=== PATIENT | female | born 1935 | race Caucasian/White ===

== ENCOUNTER 2018-08-03 15:00 | Inpatient (IN) ==
[2018-08-03] MEDS ORDERED: Naloxone 0.4 MG/ML INJ IVP PRN (18:55)
--- NOTE | 2018-08-03 19:22 | Internal Med History&Physical ---
Date of Encounter: 08/03/18 Time of Encounter: 19:00 Internal Medicine - H&P: HPI Chief complaint: s/p fall today with left hip fracture History of present illness: Ms. Crane is a 83 year old female with pmh of hypertension, hypothyroidsim, osteopenia presenting today with complaints of fall today. Patient went to retrieve her mail and fell in the snow. she tried to get up and fell a second time. She complains of left sided hip pain. Denies any other acute complaints. Patient has outward rotation of left leg on arrival. xray confirmed left femoral neck fracture. She was transferred from [place] to [place] and orthopedic surgery has been consulted Past Med Surg Social Fam HX - Past Medical History Medical history: diabetes, hypertension Psychiatric history: no psych history - Past Surgical History Surgical History: other - Social History Smoking Status: Never smoker Smokeless Tobacco Status: No Alcohol use: none Drug use: none Internal Medicine - H&P: Meds Lisinopril/Hydrochlorothiazide [Zestoretic 20-25 mg Tablet] 1 each PO DAILY 06/26/15 [History] metFORMIN [Glucophage] 500 mg PO BID 06/26/15 [History] Aspirin [Lo-Dose Aspirin EC] 81 mg PO DAILY 02/05/17 [History] Alendronate Sodium [Fosamax] 35 mg PO QWEEK 09/17/17 [History] Calcium Carbonate/Vitamin D3 [Oyster Shell Calcium-Vit D Tab] 1 each PO DAILY 09/17/17 [History] Ferrous Sulfate [Iron] 325 mg PO DAILY 09/17/17 [History] Levothyroxine Sodium [Levoxyl] 100 mcg PO DAILY 09/17/17 [History] Simvastatin [Zocor] 20 mg PO HS 09/17/17 [History] Zolpidem [Ambien] 10 mg PO HS 09/17/17 [History] Allergy/AdvReac Type Severity Reaction Status Date / Time diltiazem [From Cardizem] Allergy Rash Verified 09/17/17 10:13 All Systems PM: A 10-system review of systems was performed and is negative for pertinent findings except as documented above in the HPI. - Constitutional Constitutional: no chills, no fever(s), no night sweats - EENT Eyes: no change in vision, no discharge, no pain, no photophobia Ears: no ear discharge, no ear pain, no tinnitus Nose, mouth and throat: no dysphagia, no nasal discharge, no neck pain, no sore throat - Cardiovascular Cardiovascular ROS IM: no chest pain, no diaphoresis, no dyspnea, no lightheadedness, no palpitations, no syncope - Respiratory Respiratory: no cough, no dyspnea, no wheezing, no excessive phlegm production - Gastrointestinal Gastrointestinal: no abdominal pain, no diarrhea, no hematemesis, no hematochezia, no melena, no nausea, no vomiting - Genitourinary Genitourinary: no change in urinary stream, no dysuria, no flank pain, no hematuria - Musculoskeletal Musculoskeletal ROS IM: limited range of motion, no numbness, no tingling - Integumentary Integumentary IM: no rash, no unusual bruising - Neurological Neurological ROS: no confusion, no convulsions, no focal weakness, no numbness, no tingling, no tremor(s) - Hematologic/Lymphatic Hematologic/Lymphatic: no easy bruising - Constitutional Vitals: Temp Pulse Resp BP Pulse Ox 97.9 F 67 16 121/64 98 08/03/18 18:58 08/03/18 18:58 08/03/18 18:58 08/03/18 18:58 08/03/18 18:58 Exam: NAD - Head Head exam: Present: atraumatic, normocephalic - Eye Eye exam: Present: PERRL, conjuntiva pink, sclera anicteric Pupils: Present: PERRL - Neck Neck exam general surgery: Present: supple, trachea midline. Absent: lymphadenopathy - Respiratory Respiratory exam: Present: CTAB. Absent: accessory muscle use, rales, rhonchi, wheezes - Cardiovascular Cardiovascular exam: Present: RRR, +S1, +S2. Absent: diastolic murmur, gallop, rubs, systolic murmur - GI/Abdominal GI/Abdominal exam: Present: normal bowel sounds, soft, no peritoneal signs. Absent: distended, tenderness - Extremities Exam Extremities exam: Present: tenderness, warm, radial pulses palpable and symmetrical. Absent: calf tenderness, cyanotic, pedal edema Additional comments: External rotation of left leg - Neurological Exam Neurological exam: Present: CN II-XII intact, oriented X3, no focal deficits. Absent: pronater drift, facial droop, speech deficit - Skin Skin exam: Present: dry, intact - Assessment and plan (1) Hip fracture due to osteoporosis Current Visit: Yes Status: Acute Assessment and plan: Pt has osteopenia and is s/p fall today iwht left femoral neck fracture Pain control. Orthopedic surgery consulted and plan for surgery in am Qualifiers: Qualified Code(s): M80.059A - Age-related osteoporosis with current pathological fracture, unspecified femur, initial encounter for fracture (2) Hypothyroidism Current Visit: Yes Status: Acute Assessment and plan: Resume levothyroxine Qualifiers: Qualified Code(s): E03.9 - Hypothyroidism, unspecified (3) Hypertension Current Visit: Yes Status: Acute Assessment and plan: Continue home meds. Monitor BP Qualifiers: Qualified Code(s): I10 - Essential (primary) hypertension (4) Diabetes Current Visit: Yes Status: Acute Assessment and plan: Sliding scale insulin Qualifiers: Diabetes mellitus type: type 2 Qualified Code(s): E11.9 - Type 2 diabetes mellitus without complications (5) Leukocytosis Current Visit: Yes Status: Acute Assessment and plan: WBC from [place] was 16. CXR negative. Possibly hemoconcentration. Hydrate and repeat BMP Qualifiers: Qualified Code(s): D72.829 - Elevated white blood cell count, unspecified (6) CKD (chronic kidney disease) stage 2, GFR 60-89 ml/min Current Visit: Yes Status: Acute Assessment and plan: Stefan vs stefan on ckd stage 2. creatinie was 1.7 from [place]. Hydrate (7) DVT prophylaxis Current Visit: Yes Status: Acute Assessment and plan: scds - Time Spent With Patient Total time spent is greater than 50% in coordination of care (as documented) at patient's floor/unit and/or counseling patient:
[2018-08-03] MEDS ORDERED: Dextrose Gel 15 GM/37.5 ML TUBE PO PRN ×2 (19:27)
[2018-08-03] MEDS ORDERED: *HR* Dextrose 50 % in Water (Syg) 50 ML SYRINGE IVP PRN (19:27)
[2018-08-03] MEDS ORDERED: D5% in Water 1,000 ML IVC PRN (19:27)
[2018-08-03 19:55] LABS: Basophils % 0.2 %; Hemoglobin 11.5 g/dL (11.5-15.4); Immature Granulocytes % 0.4 % (0-4); Lymphocytes # 0.5 K/mcL (0.6-4.6); Lymphocytes % 4.2 %; Mean Corpuscular HGB Conc 31.1 g/dL (31.6-35.5); Mean Corpuscular Hemoglobin 28.8 pg (28.0-33.3); Mean Corpuscular Volume 92.5 fL (83.0-100.0); Monocytes # 0.5 K/mcL (0.0-1.3); Monocytes % 4.4 %; Neutrophils # 10.2 K/mcL (1.6-8.9); Platelet Count 323 K/mcL (140-400); Segmented Neutrophils % 90.8 %
[2018-08-03 20:06] LABS: Calcium 8.9 mg/dL (8.6-10.3); Potassium 4.7 mEq/L (3.5-5.1)
[2018-08-03] MEDS: 0.9 % Sodium Chloride 1,000 ML IVC SCH (20:20)
[2018-08-03 20:38] LABS: Estimated Average Glucose 146 mg/dl; Hemoglobin A1C 6.7 %
[2018-08-03] MEDS: *HR* OxyCODONE/APAP 5/325 TABLET PO PRN (22:29)
[2018-08-03] MEDS ORDERED: Melatonin 3 MG TABLET PO PRN (23:37)
[2018-08-04 04:03] LABS: Basophils % 0.2 %; Eosinophils % 0.2 %; Hematocrit 34.7 % (35.3-44.9); Immature Granulocytes % 0.4 % (0-4); Lymphocytes # 1.1 K/mcL (0.6-4.6); Lymphocytes % 13.5 %; Mean Corpuscular HGB Conc 31.7 g/dL (31.6-35.5); Mean Corpuscular Hemoglobin 29.5 pg (28.0-33.3); Mean Platelet Volume 10.1 fL (9.4-12.4); Monocytes # 0.6 K/mcL (0.0-1.3); Monocytes % 7.7 %; Neutrophils # 6.4 K/mcL (1.6-8.9); Platelet Count 314 K/mcL (140-400); Red Blood Count 3.73 M/mcL (3.82-4.97)
[2018-08-04 04:16] LABS: Calcium 8.7 mg/dL (8.6-10.3); Magnesium 2.1 mg/dL (1.6-2.6); Phosphorous 3.3 mg/dL (2.7-4.5); Potassium 4.8 mEq/L (3.5-5.1)
[2018-08-04] MEDS: Insulin LISPRO 300 UNITS/3 ML VIAL SQ SCH ×3 (07:57→16:57)
--- NOTE | 2018-08-04 08:12 | Orthopedics Progress Note ---
Date of Encounter: 08/04/18 Time of Encounter: 08:11 Subjective Interval history: Patient seen this morning awake and alert but not fully oriented. Patient status post fall diagnosed with hip fracture left Patient with decreased motion secondary to pain shortened external rotated left lower extremity neurovascularly intact X-rays show displaced left femoral neck fracture recommendation left hip hemiarthroplasty will discuss with patient's family. Objective Vital signs: Vital Signs Temp Pulse Resp BP Pulse Ox 08/04/18 06:53 98.5 F 73 16 126/67 96 08/04/18 04:51 98.3 F 70 16 118/70 95 08/03/18 23:08 98.2 F 73 15 116/63 94 08/03/18 18:58 97.9 F 67 16 121/64 98 08/03/18 18:45 97.7 F 73 20 137/69 98 Intake and Output 08/03/18 08/04/18 08/04/18 23:59 07:59 15:59 Output Total 50 / 50 200 / 200 Balance -50 / -50 -200 / -200 Output: Urine 50 / 50 200 / 200 Other: Weight 51.5 kg Blood Glucose* 152 123 - Labs CBC & BMP: 08/04/18 03:05 08/04/18 03:05 Labs: Abnormal lab results RBC 3.73 M/mcL (3.82-4.97) L 08/04/18 03:05 Hgb 11.0 g/dL (11.5-15.4) L 08/04/18 03:05 Hct 34.7 % (35.3-44.9) L 08/04/18 03:05 Chloride 111 mEq/L (98-107) H 08/04/18 03:05 Carbon Dioxide 19 mEq/L (23-29) L 08/04/18 03:05 BUN 44 mg/dL (8-23) H 08/04/18 03:05 Creatinine 1.52 mg/dL (0.60-1.20) H 08/04/18 03:05 Est GFR ( Amer) 40 (> 60) L 08/04/18 03:05 Est GFR (Non-Af Amer) 33 (> 60) L 08/04/18 03:05 BUN/Creatinine Ratio 29 (6-26) H 08/04/18 03:05 Glucose 143 mg/dL (70-105) H 08/04/18 03:05 Hemoglobin A1c 6.7 % (-5.6) H 08/03/18 19:24 Consult Discharge Plan - Plan Referrals: NONE,PCP [Primary Care Provider] -
[2018-08-04] MEDS: *HR* OxyCODONE/APAP 5/325 TABLET PO PRN (08:32)
[2018-08-04] MEDS ORDERED: Cholecalciferol (D-3) 1,000 UNIT TABLET PO SCH (09:00)
[2018-08-04] MEDS: 0.9 % Sodium Chloride 1,000 ML IVC SCH (10:04)
--- NOTE | 2018-08-04 12:43 | Anesthesia Evaluation PreOp ---
Date of Encounter: 08/04/18 Time of Encounter: 12:41 - Past History Planned Operation: Left Demetrius Hip Cardiac History: Denies any Significant Hx ( Planned Operation: T9 Kyphoplasy Cardiac History: HTN, Hyperlipidemia Pulmonary History: Snore JOB PRINTER History: Denies Any Significant HX Other Medical History: Diabetes Type II, Thyroid Anesthesia History: No Prior Anesthetic Complications, Past Anesthesia Alcohol Use: none Drug use: none), HTN, Hyperlipidemia Pulmonary History: Snore JOB [employer]INTER History: Denies Any Significant HX Other Medical History: Diabetes Type II, Thyroid (Hypo) Anesthesia History: No Prior Anesthetic Complications, Past Anesthesia (Kyphoplasty) : No Alcohol Use: none Drug use: none Medications and Allergies metFORMIN [Glucophage] 500 mg PO DAILY 06/26/15 [History] Aspirin [Lo-Dose Aspirin EC] 81 mg PO DAILY 02/05/17 [History] Alendronate Sodium [Fosamax] 35 mg PO QWEEK 09/17/17 [History] Calcium Carbonate/Vitamin D3 [Oyster Shell Calcium-Vit D Tab] 1 each PO DAILY 09/17/17 [History] Ferrous Sulfate [Iron] 325 mg PO DAILY 09/17/17 [History] Levothyroxine Sodium [Levoxyl] 100 mcg PO DAILY 09/17/17 [History] Simvastatin [Zocor] 20 mg PO HS 09/17/17 [History] Lisinopril 20 mg PO BID 08/03/18 [History] Allergy/AdvReac Type Severity Reaction Status Date / Time diltiazem [From Cardizem] Allergy Rash Verified 09/17/17 10:13 - Meds/Allergy Pre-op Review Medications Reviewed: Yes Allergies Reviewed: Yes Beta Blockers on Current Med List: No Anesthesia Results - Labs 08/04/18 03:05 08/04/18 03:05 - Imaging EKG: report reviewed (SINUS RHYTHM Ischemic changes in Ant-Septal area) Additional studies: Echocardiogram Name: Christine Crane Date of Study: 04/28/2016 Impressions: LVEF 60%. Normal left ventricular size and systolic function. Mild increased LV wall thickness with moderate basal septal hypertrophy. Mildly dilated RV with normal function. Mild to moderate tricuspid regurgitation. Mild pulmonic regurgitation. Estimated RVSP was 48 mmHg. Mild pulmonary hypertension. 11/22/2013 Stress Perfusion imaging was negative for ischemia or infarct. There is a small size, mild intensity, fixed perfusion defect in the distal anteroseptum c/w artifact. Exercise ECG is negative for ischemia. No arrhythmias were noted during stress. No chest pain or arrhythmias during stress. Patient had no chest pain during stress. The exercise capacity was poor (2:33/4.6 METs). Normal hemodynamic responses to exercise. The left ventricle does not appear dilated. No evidence of transient ischemic dilatation. Anesthesia Exam Vital Signs/O2 Sat, Most Current Temp Pulse Resp BP Pulse Ox 99.3 F 78 16 103/56 96 08/04/18 10:55 08/04/18 10:55 08/04/18 10:55 08/04/18 10:55 08/04/18 10:55 NPO (# of Hours): > 8 hrs Pain Scale: 0 Pain Scale Used: Numeric (1 - 10) - HEENT Pupil (Motor): Pupils equal, EOMI Mallampati: II Teeth: Missing Denture Type: Upper: Complete Oral Opening: Greater than 3 - JOB PRINTER LOC: Oriented JOB PRINTER Motor: Normal RUE, Normal LUE, Normal RLE, Normal LLE, Normal Face JOB PRINTER Sensory: Normal: RUE, LUE, RLE, LLE, Face - Cardiac Rhythm: Regular Murmur: None JVD: No Carotid Bruit: No - Pulmonary Breath Sounds: bilateral Clear Respiratory Effort: Symmetrical Anesthesia Assess/Plan ASA Score: 3 Level of consciousness: Cooperative Anesthetic Plan: General Autologous Blood: Yes Monitoring Plan: Standard Monitors Recovery Plan: PACU
[2018-08-04] MEDS ORDERED: Lidocaine -MPF 1% 5 ML AMPUL ONE (13:15)
[2018-08-04] MEDS ORDERED: *HR* FentaNYL (PF) 100 MCG/2 ML VIAL ONE (13:17)
--- NOTE | 2018-08-04 13:36 | Anesthesia Procedures ---
Date of Encounter: 08/04/18 Time of Encounter: 13:22 Procedures: Anesthesia - Epidural/Spinal Patient ID/Chart reviewed: Yes Patient examined: Yes Consent Obtained: Yes Supplemental Oxygen: Nasal Cannula Sedation: Fentanyl (mcg): 50 Site Prep: Aseptic Technique, Sterile prep and drape, 0.5% Chlorhexidine/Alcohol Patient position: right lateral decubitus Local Anesthetic: Lidocaine 1% Amount of Local Anesthetic used: 2 Blood: No CSF: Yes Paresthesia: No Spinal Dose: 2ml 0.5% bup plain, positive swirl 24g pencan Procedure: pencan passage x3 to clear CSF aseptic tech though out, gage well.
[2018-08-04] MEDS ORDERED: *HR* Propofol 200 MG/20 ML VIAL IVP ONE (13:37)
[2018-08-04] MEDS ORDERED: *HR* PHENYLEPHRINE 1,000 MCG/10 ML SYRINGE IVP ONE ×2 (13:48→14:02)
--- NOTE | 2018-08-04 13:50 | Internal Med Progress Note ---
Hospitalist Progress Note - Encounter Date of Encounter: 08/04/18 Time of Encounter: 10:00 - Subjective Interval History: Patient is laying on bed comfortably. Complain of left hip pain but can be controlled by pain medications. Vitals are stable. - Exam Vitals: Temp Pulse Resp BP Pulse Ox 99.3 F 71 16 82/47 97 08/04/18 10:55 08/04/18 13:45 08/04/18 13:45 08/04/18 13:45 08/04/18 13:45 Exam: Pt is AAO x 3, in NAD HEENT: NC/AT, PERRL Neck: Supple, no JVD, no LAD Lungs: CTA b/l Heart: S1S2, RRR Abd: Soft, nontender, BS present Ext: ROM wnl, no pedal edema. Left hip pain on palpation. Neuro: No focal deficit - Assessment and Plan (1) Hip fracture due to osteoporosis Current Visit: Yes Status: Acute Assessment and Plan: Pt has osteopenia and is s/p fall today wiht left femoral neck fracture. - Pain control. DVT prophylaxis. - Orthopedic surgery consulted and plan for surgery (2) Hypothyroidism Current Visit: Yes Status: Acute Assessment and Plan: Resume home dose levothyroxine (3) Hypertension Current Visit: Yes Status: Acute Assessment and Plan: Continue home meds. Monitor BP (4) Diabetes Current Visit: Yes Status: Acute Assessment and Plan: Sliding scale insulin (5) DVT prophylaxis Current Visit: Yes Status: Acute Assessment and Plan: scds at this point. Resume anticoagulation after surgery (6) Leukocytosis Current Visit: Yes Status: Acute Assessment and Plan: Improved. Possibly reactive. (7) CKD (chronic kidney disease) stage 2, GFR 60-89 ml/min Current Visit: Yes Status: Acute Assessment and Plan: Creatinine level is at around baseline. Closely monitor renal function. Avoid nephrotoxic medications - Time Spent with Patient Total time spent is greater than 50% in coordination of care (as documented) at patient's floor/unit and/or counseling patient: 30 min 25 - 35 minutes Plan of Care Discussed with: patient Internal Medicine: Result - Labs CBC & Chem 7: 08/04/18 03:05 08/04/18 03:05 Labs: Short CBC 08/03/18 08/04/18 Range/Units 19:24 03:05 WBC 11.2 H 8.2 (4.3-11.1) K/mcL Hgb 11.5 11.0 L (11.5-15.4) g/dL Hct 37.0 34.7 L (35.3-44.9) % Plt Count 323 314 (140-400) K/mcL Neutrophils # 10.2 H 6.4 (1.6-8.9) K/mcL BMP 08/03/18 08/04/18 19:24 03:05 Sodium 138 138 Potassium 4.7 4.8 Chloride 111 H 111 H Carbon Dioxide 21 L 19 L BUN 50 H 44 H Creatinine 1.56 H 1.52 H Glucose 174 H 143 H Calcium 8.9 8.7 Consult Discharge Plan - Plan Referrals: NONE,PCP [Primary Care Provider] - (1) Hip fracture due to osteoporosis Qualifiers: Qualified Code(s): M80.059A - Age-related osteoporosis with current pathological fracture, unspecified femur, initial encounter for fracture (2) Hypothyroidism Qualifiers: Qualified Code(s): E03.9 - Hypothyroidism, unspecified (3) Hypertension Qualifiers: Qualified Code(s): I10 - Essential (primary) hypertension (4) Diabetes Qualifiers: Diabetes mellitus type: type 2 Qualified Code(s): E11.9 - Type 2 diabetes mellitus without complications (6) Leukocytosis Qualifiers: Qualified Code(s): D72.829 - Elevated white blood cell count, unspecified
[2018-08-04] MEDS ORDERED: Ethanol\\Acetic Acid\\Na Ace\\Ben 1,000 ML IRRIG.SOLN IR ONE (14:02)
[2018-08-04] MEDS ORDERED: Propofol 500 MG/50 ML INFUS..BTL ONE (14:21)
[2018-08-04] MEDS ORDERED: Ondansetron 4 MG/2 ML VIAL ONE (14:43)
[2018-08-04] MEDS ORDERED: Lidocaine -MPF 2% 2 ML VIAL ONE (14:43)
--- NOTE | 2018-08-04 15:03 | Orthopedic Operative Note ---
Date of procedure: 08/04/18 Pre-op diagnosis: Displaced left femoral neck fracture Post-op diagnosis: same Procedure: Procedure: Left hip hemiarthroplasty Estimated blood loss: 100 cc Hardware: Metal replacement Ksenia bipolar 45 Ileana +8 femoral head, 7 femoral stem Procedural Notes: Displaced left femoral neck fracture Operative procedure: The patient was brought to the operating room and placed on the operating room table. After general anesthesia was administered the patient was placed in the lateral decubitus position with the operative leg up. All pressure points were padded appropriately and the head was stabilized in the neutral position. The operative extremity was prepped and draped in the sterile surgical fashion patient received IV antibiotic prior to skin incision. A standard posterior approach is made to the operative hip, the incision was made through the skin and subcutaneous tissue hemostasis was obtained with Bovie cautery. Using careful sharp dissection the fascia was identified and incised exposing the external rotators. The external rotators were released off the greater trochanter and tagged with #2 FiberWire suture. The capsule was T'd open the femoral head was removed. The femoral neck cut was made at the appropriate level. The hip was brought into internal rotation and prepared with the box sorter followed by the canal finder followed by broaching process in 20 degrees anteversion. It was broached up to the appropriate size 7 The femoral implant was impacted in place in 20 degrees of anteversion. Trial reduction found the hip to be stable with the appropriate sizes 45 bipolar Ileana +8 head. The trials were removed and the real implants were impacted in place. The hip was reduced, the hip had full extension and full flexion of the knee was in full extension.the patient had apparent equal leg length. The hip had excellent stability with forward flexion to 90 degrees adduction of 30 degrees and internal rotation of 60 degrees. The hip had no shuck. The hip was irrigated out with 2 L of pulse irrigation. The PA close the hip. Fascia was closed with #2 PDS suture. The deep tissue was irrigated and closed deep with #1 PDS suture superficially with 0 PDS suture and skin was closed with skin rojelio The patient was placed in a sterile dressing and abduction pillow. The patient was extubated and transferred to the recovery room in stable condition. Anesthesia: GETA Surgeon: Constantino Stephenson Was there an land surveyor assistant present: No Estimated blood loss (cc): 100 Condition: stable Disposition: PACU
--- NOTE | 2018-08-04 15:51 | Anesthesia Evaluation Post Op ---
Date of Encounter: 08/04/18 Time of Encounter: 15:50 - Vital Signs Vital Signs: Vital Signs/O2 Sat, Most Current Temp Pulse Resp BP Pulse Ox 99.5 F 95 16 116/65 99 08/04/18 15:37 08/04/18 15:37 08/04/18 15:37 08/04/18 15:37 08/04/18 15:37 - Lungs Lungs: Clear Ascult./Percussion - Airway Airway: Non-obstructed - Cardiovascular Regular Rate - Mental Status Mental Status: Alert & Oriented, Answers Appropriately - Pain Pain Scale: 0 Pain Scale used: Numeric (1 - 10) - Nausea Vomiting Nausea Vomiting: Not Present - Hydration Hydration: Tolerates oral liquids, Has not voided - Discharge PostOp Status: Transfer Patient to floor
[2018-08-04 15:54] LABS: Hematocrit 30.8 % (35.3-44.9); Hemoglobin 9.6 g/dL (11.5-15.4)
[2018-08-04] MEDS ORDERED: *HR* OxyCODONE/APAP 5/325 TABLET PO PRN (16:08)
[2018-08-04] MEDS ORDERED: 0.9 % Sodium Chloride 1,000 ML IVC SCH (16:08)
[2018-08-04] MEDS ORDERED: Naloxone 0.4 MG/ML INJ IVP PRN ×2 (16:08)
[2018-08-04] MEDS ORDERED: Sennosides 8.6 MG TABLET PO PRN (16:08)
[2018-08-04] MEDS ORDERED: *HR* Promethazine 25 MG/ML VIAL IVP PRN (16:08)
[2018-08-04] MEDS ORDERED: Temazepam 15 MG CAPSULE PO PRN (16:08)
[2018-08-04] MEDS ORDERED: MOM Conc 10 ML UD.LIQ PO PRN (16:08)
[2018-08-04] MEDS ORDERED: Ondansetron 4 MG/2 ML VIAL IVP PRN (16:08)
[2018-08-04] MEDS ORDERED: Dextrose Gel 15 GM/37.5 ML TUBE PO PRN ×2 (16:08)
[2018-08-04] MEDS ORDERED: *HR* Dextrose 50 % in Water (Syg) 50 ML SYRINGE IVP PRN (16:08)
[2018-08-04] MEDS ORDERED: D5% in Water 1,000 ML IVC PRN (16:08)
[2018-08-04] MEDS: Ascorbic Acid 500 MG TABLET PO SCH (17:19)
[2018-08-04] MEDS ORDERED: *HR* LORazepam 2 MG/ML VIAL IVP PRN (18:22)
[2018-08-04] MEDS ORDERED: Lisinopril 20 MG TABLET PO SCH (21:00)
[2018-08-04] MEDS: Ringers Solution, Lactated 1,000 ML IVC SCH (21:31)
[2018-08-04] MEDS: Melatonin 3 MG TABLET PO PRN (22:42)
[2018-08-05 06:35] LABS: Hematocrit 26.5 % (35.3-44.9); Hemoglobin 8.6 g/dL (11.5-15.4)
[2018-08-05] MEDS: Ringers Solution, Lactated 1,000 ML IVC SCH (06:58)
[2018-08-05 06:59] LABS: Calcium 8.5 mg/dL (8.6-10.3); Potassium 4.7 mEq/L (3.5-5.1)
[2018-08-05] MEDS: Insulin LISPRO 300 UNITS/3 ML VIAL SQ SCH ×3 (07:40→17:50)
[2018-08-05] MEDS ORDERED: Lisinopril 20 MG TABLET PO SCH (09:00)
[2018-08-05] MEDS: Multivit/Ca/Min/Fe/FA 1 TAB TABLET PO SCH (09:09)
[2018-08-05] MEDS: Ascorbic Acid 500 MG TABLET PO SCH ×2 (09:09→17:49)
[2018-08-05] MEDS: Cholecalciferol (D-3) 1,000 UNIT TABLET PO SCH (09:09)
--- NOTE | 2018-08-05 09:30 | Orthopedics Progress Note ---
Date of Encounter: 08/05/18 Time of Encounter: 09:29 - Assessment and Plan (1) Acute blood loss anemia Current Visit: Yes Status: Acute Subjective Interval history: Patient was seen this morning doing well without complaints. Afebrile vital signs stable. Operative extremity: Neurovascularly intact Dressing clean dry and intact Calves nontender Assessment and plan: Continue with postoperative care Hematocrit 26 stable for discharge Objective Vital signs: Vital Signs Temp Pulse Resp BP Pulse Ox 08/05/18 07:14 98.1 F 87 15 131/61 96 08/05/18 05:08 147/76 08/04/18 23:26 97.8 F 89 16 106/61 95 08/04/18 20:59 95 08/04/18 20:54 98.1 F 90 18 114/67 95 08/04/18 19:45 98.2 F 86 16 102/63 98 08/04/18 18:41 97.9 F 91 20 96/59 97 08/04/18 16:51 97.9 F 93 103/52 100 08/04/18 16:10 97.4 F L 103 107/66 95 08/04/18 15:47 92 16 117/68 96 08/04/18 15:37 99.5 F 95 16 116/65 99 08/04/18 15:27 92 18 117/61 98 08/04/18 15:17 88 18 115/60 98 08/04/18 15:07 99.3 F 88 18 101/58 100 08/04/18 14:10 69 15 96/52 99 08/04/18 14:03 61 15 110/64 99 08/04/18 14:00 71 15 84/47 97 08/04/18 13:58 74 15 93/50 98 08/04/18 13:55 70 16 93/48 98 08/04/18 13:50 69 15 105/59 98 08/04/18 13:45 71 16 82/47 97 08/04/18 13:41 70 15 100/55 97 08/04/18 13:36 69 15 106/56 97 08/04/18 13:30 70 15 136/77 97 08/04/18 10:55 99.3 F 78 16 103/56 96 Intake and Output 08/04/18 08/05/18 08/05/18 23:59 07:59 15:59 Intake Total 400 / 400 Output Total 300 / 300 Balance 100 / 100 Intake: IV Fluids 100 / 100 Ancef 2,000 MG In 0.9 % Sodium 100 / 100 Chloride 100 ML @ 200 mls/hr IVPB Q8H [facility] Rx#:[id number] Oral 300 / 300 Output: Urine 300 / 300 Other: # Voids 1 Weight 52 kg Blood Glucose* 208 137 Patient Weight 08/05/18 23:59 Weight 52 kg - Labs CBC & BMP: 08/05/18 05:45 08/05/18 05:45 Labs: Abnormal lab results RBC 3.73 M/mcL (3.82-4.97) L 08/04/18 03:05 Hgb 8.6 g/dL (11.5-15.4) L 08/05/18 05:45 Hct 26.5 % (35.3-44.9) L 08/05/18 05:45 Chloride 109 mEq/L (98-107) H 08/05/18 05:45 Carbon Dioxide 19 mEq/L (23-29) L 08/05/18 05:45 BUN 37 mg/dL (8-23) H 08/05/18 05:45 Creatinine 1.54 mg/dL (0.60-1.20) H 08/05/18 05:45 Est GFR ( Amer) 39 (> 60) L 08/05/18 05:45 Est GFR (Non-Af Amer) 32 (> 60) L 08/05/18 05:45 Glucose 162 mg/dL (70-105) H 08/05/18 05:45 POC Glucose 107 mg/dL (70-99) H 08/04/18 16:19 Hemoglobin A1c 6.7 % (-5.6) H 08/03/18 19:24 Calcium 8.5 mg/dL (8.6-10.3) L 08/05/18 05:45 Consult Discharge Plan - Plan Referrals: NONE,PCP [Primary Care Provider] -
[2018-08-05] MEDS: *HR* OxyCODONE/APAP 10/325 TABLET PO PRN (13:08)
--- NOTE | 2018-08-05 14:22 | Internal Med Progress Note ---
Hospitalist Progress Note - Encounter Date of Encounter: 08/05/18 Time of Encounter: 09:00 - Subjective Interval History: Patient is laying on bed comfortably. S/p surgery. Complain of left hip pain although on pain med, will try to gradually increase the dose. Vitals are stable. - Exam Vitals: Temp Pulse Resp BP Pulse Ox 98.6 F 84 16 102/55 94 08/05/18 11:34 08/05/18 11:34 08/05/18 11:34 08/05/18 11:34 08/05/18 11:34 Exam: Pt is AAO x 3, in NAD HEENT: NC/AT, PERRL Neck: Supple, no JVD, no LAD Lungs: CTA b/l Heart: S1S2, RRR Abd: Soft, nontender, BS present Ext: ROM wnl, no pedal edema. Left hip pain on palpation. Neuro: No focal deficit - Assessment and Plan (1) Hip fracture due to osteoporosis Current Visit: Yes Status: Acute Assessment and Plan: Pt has osteopenia and is s/p fall today wiht left femoral neck fracture. - S/P surgery - Continue PTOT, pain management, and DVT prophylaxis (2) Hypothyroidism Current Visit: Yes Status: Acute Assessment and Plan: Resume home dose levothyroxine (3) Hypertension Current Visit: Yes Status: Acute Assessment and Plan: Continue home meds. Monitor BP (4) Diabetes Current Visit: Yes Status: Acute Assessment and Plan: Sliding scale insulin (5) DVT prophylaxis Current Visit: Yes Status: Acute Assessment and Plan: Subcutaneous heparin (6) Leukocytosis Current Visit: Yes Status: Acute Assessment and Plan: Improved. Possibly reactive. (7) CKD (chronic kidney disease) stage 2, GFR 60-89 ml/min Current Visit: Yes Status: Acute Assessment and Plan: Creatinine level is at around baseline. Closely monitor renal function. Avoid nephrotoxic medications DVT Prophylaxis: Subcutaneous heparin - Time Spent with Patient Total time spent is greater than 50% in coordination of care (as documented) at patient's floor/unit and/or counseling patient: 30 min 25 - 35 minutes Plan of Care Discussed with: patient Internal Medicine: Result - Labs CBC & Chem 7: 08/05/18 05:45 08/05/18 05:45 Labs: Short CBC 08/04/18 08/05/18 Range/Units 15:29 05:45 Hgb 9.6 L 8.6 L (11.5-15.4) g/dL Hct 30.8 L 26.5 L (35.3-44.9) % BMP 08/05/18 05:45 Sodium 137 Potassium 4.7 Chloride 109 H Carbon Dioxide 19 L BUN 37 H Creatinine 1.54 H Glucose 162 H Calcium 8.5 L - Impressions Impressions Hip X-Ray 08/04/18 13:47 IMPRESSION: 1. Status post uncomplicated hip arthroplasty. D/ / Vijay Raza MD / Vijay Raza MD Interpreting Provider: Vijay Raza MD Hip X-Ray 08/04/18 18:22 IMPRESSION: No interval detrimental change following recent left hip arthroplasty. D/ / Vijay Martinez MD / Vijay Martinez MD Interpreting Provider: Vijay Martinez MD Consult Discharge Plan - Plan Referrals: NONE,PCP [Primary Care Provider] - (1) Hip fracture due to osteoporosis Qualifiers: Qualified Code(s): M80.059A - Age-related osteoporosis with current pathological fracture, unspecified femur, initial encounter for fracture (2) Hypothyroidism Qualifiers: Qualified Code(s): E03.9 - Hypothyroidism, unspecified (3) Hypertension Qualifiers: Qualified Code(s): I10 - Essential (primary) hypertension (4) Diabetes Qualifiers: Diabetes mellitus type: type 2 Qualified Code(s): E11.9 - Type 2 diabetes mellitus without complications (6) Leukocytosis Qualifiers: Qualified Code(s): D72.829 - Elevated white blood cell count, unspecified
[2018-08-05] MEDS: *HR* Heparin 5,000 UNIT/ML VIAL SQ SCH (17:49)
--- NOTE | 2018-08-06 00:17 | Event Note ---
Date of Encounter: 08/05/18 Time of Encounter: 19:35 Alerted by pts. nurse that the pts. IV had infiltrated at 08:30 this morning and swelling has not improved. Nurse reported blood return. IV removed. Pt. not due for any IV medications so nurse instructed to leave IV out. Stat Doppler of the extremity ordered which was negative for DVT but positive for SVT in cephalic vein. Nurse instructed to apply warm compresses and keep me informed of any adverse changes immediately.
[2018-08-06] MEDS: *HR* Heparin 5,000 UNIT/ML VIAL SQ SCH ×2 (05:34→17:52)
[2018-08-06] MEDS: *HR* OxyCODONE/APAP 10/325 TABLET PO PRN (05:34)
[2018-08-06] MEDS ORDERED: 0.9 % Sodium Chloride 500 ML IVC ONE (06:38)
[2018-08-06 07:22] LABS: Hematocrit 21.9 % (35.3-44.9); Hemoglobin 7.1 g/dL (11.5-15.4)
[2018-08-06 07:37] LABS: Calcium 8.3 mg/dL (8.6-10.3); Potassium 4.7 mEq/L (3.5-5.1)
[2018-08-06] MEDS: Insulin LISPRO 300 UNITS/3 ML VIAL SQ SCH ×3 (07:48→17:11)
[2018-08-06] MEDS: Cholecalciferol (D-3) 1,000 UNIT TABLET PO SCH (09:13)
[2018-08-06] MEDS: Multivit/Ca/Min/Fe/FA 1 TAB TABLET PO SCH (09:13)
[2018-08-06] MEDS: Ascorbic Acid 500 MG TABLET PO SCH ×2 (09:13→16:28)
--- NOTE | 2018-08-06 12:02 | Orthopedics Progress Note ---
Date of Encounter: 08/06/18 Time of Encounter: 12:00 Subjective Principal diagnosis: Status post left hip hemiarthroplasty Interval history: The patient is without complaints. Had discussion with her regarding anemia and she is adamant about withholding transfusion. Afebrile vital signs are stable. Dressing is clean dry and intact. Neurovascularly intact with regard to b ilateral lower extremities. . Assessment :stable. Plan mobilize ,continue analgesics, discharge planning. Will start ferrous sulfate. Objective Vital signs: Vital Signs Temp Pulse Resp BP Pulse Ox 08/06/18 10:38 97.7 F 80 18 106/56 95 08/06/18 08:59 94/50 08/06/18 07:52 76/41 08/06/18 07:22 98.0 F 74 14 84/46 94 08/06/18 06:47 76 85/48 08/06/18 06:38 97.9 F 80 14 74/38 94 08/06/18 04:00 98.2 F 97 12 108/65 93 08/06/18 00:59 99.9 F H 82 18 93/52 93 08/05/18 21:18 91 08/05/18 18:58 97.8 F 74 12 94/53 91 08/05/18 16:09 14 99/66 94 08/05/18 14:50 97.4 F L 94 14 93/61 96 Intake and Output 08/05/18 08/06/18 08/06/18 23:59 07:59 15:59 Intake Total 200 / 200 500 / 500 120 / 120 Balance 200 / 200 500 / 500 120 / 120 Intake: IV Fluids 500 / 500 0.9 % Sodium Chloride 500 ML @ 500 / 500 999 mls/hr IVC .Q31M ONE Rx#: [id number] Oral 200 / 200 120 / 120 Other: Meal Dinner Breakfast Percent of Meal Consumed 55% 80% # Voids 1 1 Weight 59.2 kg Blood Glucose* 113 133 219 Patient Weight 08/06/18 23:59 Weight 59.2 kg - Labs CBC & BMP: 08/06/18 06:01 08/06/18 06:01 Labs: Abnormal lab results RBC 3.73 M/mcL (3.82-4.97) L 08/04/18 03:05 Hgb 7.1 g/dL (11.5-15.4) L D 08/06/18 06:01 Hct 21.9 % (35.3-44.9) L 08/06/18 06:01 Sodium 135 mEq/L (136-145) L 08/06/18 06:01 Chloride 108 mEq/L (98-107) H 08/06/18 06:01 Carbon Dioxide 18 mEq/L (23-29) L 08/06/18 06:01 BUN 48 mg/dL (8-23) H 08/06/18 06:01 Creatinine 1.75 mg/dL (0.60-1.20) H 08/06/18 06:01 Est GFR ( Amer) 34 (> 60) L 08/06/18 06:01 Est GFR (Non-Af Amer) 28 (> 60) L 08/06/18 06:01 BUN/Creatinine Ratio 27 (6-26) H 08/06/18 06:01 Glucose 131 mg/dL (70-105) H 08/06/18 06:01 POC Glucose 219 mg/dL (70-99) H 08/06/18 11:12 Hemoglobin A1c 6.7 % (-5.6) H 08/03/18 19:24 Calcium 8.3 mg/dL (8.6-10.3) L 08/06/18 06:01 Consult Discharge Plan - Plan Referrals: NONE,PCP [Primary Care Provider] -
--- NOTE | 2018-08-06 12:40 | Internal Med Progress Note ---
Hospitalist Progress Note - Encounter Date of Encounter: 08/06/18 Time of Encounter: 09:00 - Subjective Interval History: Patient is laying on bed comfortably. S/p surgery. mild left hip pain, on pain med. BP is at lower side, will hold HTN medication. - Exam Vitals: Temp Pulse Resp BP Pulse Ox 97.7 F 80 18 106/56 95 08/06/18 10:38 08/06/18 10:38 08/06/18 10:38 08/06/18 10:38 08/06/18 10:38 Exam: Pt is AAO x 3, in NAD HEENT: NC/AT, PERRL Neck: Supple, no JVD, no LAD Lungs: CTA b/l Heart: S1S2, RRR Abd: Soft, nontender, BS present Ext: ROM wnl, no pedal edema. Left hip pain on palpation. Neuro: No focal deficit - Assessment and Plan (1) Hip fracture due to osteoporosis Current Visit: Yes Status: Acute Assessment and Plan: Pt has osteopenia and is s/p fall today wiht left femoral neck fracture. - S/P surgery - Continue PTOT, pain management, and DVT prophylaxis (2) Hypothyroidism Current Visit: Yes Status: Acute Assessment and Plan: Resume home dose levothyroxine (3) Hypertension Current Visit: Yes Status: Acute Assessment and Plan: BP is low today, will hold home meds. Monitor BP (4) Diabetes Current Visit: Yes Status: Acute Assessment and Plan: Sliding scale insulin (5) DVT prophylaxis Current Visit: Yes Status: Acute Assessment and Plan: Subcutaneous heparin (6) Leukocytosis Current Visit: Yes Status: Acute Assessment and Plan: Improved. Possibly reactive. (7) CKD (chronic kidney disease) stage 2, GFR 60-89 ml/min Current Visit: Yes Status: Acute Assessment and Plan: Creatinine level is at around baseline. Closely monitor renal function. Avoid nephrotoxic medications (8) Acute blood loss anemia Current Visit: Yes Status: Acute Assessment and Plan: Hgb 7.1 today, with BP at low side. No signs of active bleeding so far (also per ortho exam on incision). Possibly due to surgical blood loss. Transfusion ordered but pt refuse at this point. Cont closely monitor H/H DVT Prophylaxis: Subcutaneous heparin - Time Spent with Patient Total time spent is greater than 50% in coordination of care (as documented) at patient's floor/unit and/or counseling patient: 25 - 35 minutes Plan of Care Discussed with: patient Internal Medicine: Result - Labs CBC & Chem 7: 08/06/18 06:01 08/06/18 06:01 Labs: Short CBC 08/06/18 Range/Units 06:01 Hgb 7.1 L D (11.5-15.4) g/dL Hct 21.9 L (35.3-44.9) % BMP 08/06/18 06:01 Sodium 135 L Potassium 4.7 Chloride 108 H Carbon Dioxide 18 L BUN 48 H Creatinine 1.75 H Glucose 131 H Calcium 8.3 L Consult Discharge Plan - Plan Referrals: NONE,PCP [Primary Care Provider] - (1) Hip fracture due to osteoporosis Qualifiers: Qualified Code(s): M80.059A - Age-related osteoporosis with current pathological fracture, unspecified femur, initial encounter for fracture (2) Hypothyroidism Qualifiers: Qualified Code(s): E03.9 - Hypothyroidism, unspecified (3) Hypertension Qualifiers: Qualified Code(s): I10 - Essential (primary) hypertension (4) Diabetes Qualifiers: Diabetes mellitus type: type 2 Qualified Code(s): E11.9 - Type 2 diabetes mellitus without complications (6) Leukocytosis Qualifiers: Qualified Code(s): D72.829 - Elevated white blood cell count, unspecified
[2018-08-06] MEDS: traMADol 50 MG TABLET PO PRN ×2 (16:28→21:52)
[2018-08-07] MEDS: *HR* Heparin 5,000 UNIT/ML VIAL SQ SCH ×2 (06:44→17:41)
[2018-08-07 07:22] LABS: Hematocrit 20.9 % (35.3-44.9); Hemoglobin 6.6 g/dL (11.5-15.4)
[2018-08-07] MEDS: Insulin LISPRO 300 UNITS/3 ML VIAL SQ SCH ×3 (07:42→17:20)
[2018-08-07 07:43] LABS: Potassium 4.5 mEq/L (3.5-5.1)
[2018-08-07] MEDS: Multivit/Ca/Min/Fe/FA 1 TAB TABLET PO SCH (08:36)
[2018-08-07] MEDS: Cholecalciferol (D-3) 1,000 UNIT TABLET PO SCH (08:36)
[2018-08-07] MEDS: Ascorbic Acid 500 MG TABLET PO SCH ×2 (08:36→17:33)
--- NOTE | 2018-08-07 13:07 | Internal Med Progress Note ---
Hospitalist Progress Note - Encounter Date of Encounter: 08/07/18 Time of Encounter: 09:00 - Subjective Interval History: Patient is laying on bed comfortably. S/p surgery. mild left hip pain, on pain med. BP is at lower side, cont hold HTN medication. H/H further droped with Hgb 6.6, pt cont to refuse transfusion, risk of low H/H including sudden and cardiac arrest explained to her. Pt is AAO x 3 but insist no refuse transfusion. Denies melena. - Exam Vitals: Temp Pulse Resp BP Pulse Ox 98.9 F 75 15 109/58 94 08/07/18 10:49 08/07/18 10:49 08/07/18 10:49 08/07/18 10:49 08/07/18 10:49 Exam: Pt is AAO x 3, in NAD HEENT: NC/AT, PERRL Neck: Supple, no JVD, no LAD Lungs: CTA b/l Heart: S1S2, RRR Abd: Soft, nontender, BS present Ext: ROM wnl, no pedal edema. Left hip pain on palpation. Neuro: No focal deficit - Assessment and Plan (1) Hip fracture due to osteoporosis Current Visit: Yes Status: Acute Assessment and Plan: Pt has osteopenia and is s/p fall today wiht left femoral neck fracture. - S/P surgery - Continue PTOT, pain management, and DVT prophylaxis (2) Hypothyroidism Current Visit: Yes Status: Acute Assessment and Plan: Resume home dose levothyroxine (3) Hypertension Current Visit: Yes Status: Acute Assessment and Plan: BP is low today, will hold home meds. Monitor BP (4) Diabetes Current Visit: Yes Status: Acute Assessment and Plan: Sliding scale insulin (5) DVT prophylaxis Current Visit: Yes Status: Acute Assessment and Plan: Subcutaneous heparin (6) Leukocytosis Current Visit: Yes Status: Acute Assessment and Plan: Improved. Possibly reactive. (7) CKD (chronic kidney disease) stage 2, GFR 60-89 ml/min Current Visit: Yes Status: Acute Assessment and Plan: Creatinine level is at around baseline. Closely monitor renal function. Avoid nephrotoxic medications (8) Acute blood loss anemia Current Visit: Yes Status: Acute Assessment and Plan: Hgb 6.6 today, with BP at low side. No signs of active bleeding so far (also per ortho exam on incision). Possibly due to surgical blood loss. Transfusion ordered but pt refuse at this point. Cont closely monitor H/H. Pt is on iron supplement. DVT Prophylaxis: Subcutaneous heparin - Time Spent with Patient Total time spent is greater than 50% in coordination of care (as documented) at patient's floor/unit and/or counseling patient: 30 min 25 - 35 minutes Plan of Care Discussed with: patient Internal Medicine: Result - Labs CBC & Chem 7: 08/07/18 06:48 08/07/18 06:48 Labs: Short CBC 08/07/18 Range/Units 06:48 Hgb 6.6 L (11.5-15.4) g/dL Hct 20.9 L (35.3-44.9) % BMP 08/07/18 06:48 Sodium 136 Potassium 4.5 Chloride 109 H Carbon Dioxide 18 L BUN 47 H Creatinine 1.50 H Glucose 105 Calcium 8.0 L Consult Discharge Plan - Plan Referrals: NONE,PCP [Primary Care Provider] - (1) Hip fracture due to osteoporosis Qualifiers: Qualified Code(s): M80.059A - Age-related osteoporosis with current pathological fracture, unspecified femur, initial encounter for fracture (2) Hypothyroidism Qualifiers: Qualified Code(s): E03.9 - Hypothyroidism, unspecified (3) Hypertension Qualifiers: Qualified Code(s): I10 - Essential (primary) hypertension (4) Diabetes Qualifiers: Diabetes mellitus type: type 2 Qualified Code(s): E11.9 - Type 2 diabetes mellitus without complications (6) Leukocytosis Qualifiers: Qualified Code(s): D72.829 - Elevated white blood cell count, unspecified
--- NOTE | 2018-08-07 19:02 | Orthopedics Progress Note ---
Date of Encounter: 08/07/18 Time of Encounter: 19:02 Subjective Principal diagnosis: Status post left hip hemiarthroplasty Interval history: The patient is without complaints. Had discussion with her regarding anemia and she is adamant about withholding transfusion. Hemoglobin down to 6.6. Patient aware of risk. Afebrile vital signs are stable. Dressing is clean dry and intact. Neurovascularly intact with regard to bilateral lower extremities. . Assessment :stable. Plan mobilize ,continue analgesics, discharge planning. Will start ferrous sulfate. Objective Vital signs: Vital Signs Temp Pulse Resp BP Pulse Ox 08/07/18 18:35 98.7 F 76 20 107/59 94 08/07/18 16:01 98.6 F 69 15 116/65 95 08/07/18 10:49 98.9 F 75 15 109/58 94 08/07/18 07:03 98.0 F 76 15 102/50 94 08/07/18 02:31 97.4 F L 75 20 103/49 93 08/07/18 00:39 98.1 F 73 16 97/53 93 08/06/18 22:00 94 Intake and Output 08/07/18 08/07/18 08/07/18 07:59 15:59 23:59 Intake Total 200 / 200 360 / 360 610 / 610 Output Total 615 / 615 200 / 200 0 / 0 Balance -415 / -415 160 / 160 610 / 610 Intake: Oral 200 / 200 360 / 360 610 / 610 Output: Urine 615 / 615 200 / 200 0 / 0 Other: Meal Breakfast Dinner Percent of Meal Consumed 100% 95% # Voids 1 1 Weight 58.3 kg Blood Glucose* 118 123 140 Patient Weight 08/07/18 23:59 Weight 58.3 kg - Labs CBC & BMP: 08/07/18 17:09 08/07/18 06:48 Labs: Abnormal lab results RBC 3.73 M/mcL (3.82-4.97) L 08/04/18 03:05 Hgb 7.0 g/dL (11.5-15.4) L 08/07/18 17:09 Hct 22.0 % (35.3-44.9) L 08/07/18 17:09 Chloride 109 mEq/L (98-107) H 08/07/18 06:48 Carbon Dioxide 18 mEq/L (23-29) L 08/07/18 06:48 BUN 47 mg/dL (8-23) H 08/07/18 06:48 Creatinine 1.50 mg/dL (0.60-1.20) H 08/07/18 06:48 Est GFR ( Amer) 40 (> 60) L 08/07/18 06:48 Est GFR (Non-Af Amer) 33 (> 60) L 08/07/18 06:48 BUN/Creatinine Ratio 31 (6-26) H 08/07/18 06:48 POC Glucose 118 mg/dL (70-99) H 08/07/18 07:10 Hemoglobin A1c 6.7 % (-5.6) H 08/03/18 19:24 Calcium 8.0 mg/dL (8.6-10.3) L 08/07/18 06:48 Consult Discharge Plan - Plan Referrals: NONE,PCP [Primary Care Provider] -
[2018-08-07] MEDS: traMADol 50 MG TABLET PO PRN (19:43)
[2018-08-07] MEDS: Melatonin 3 MG TABLET PO PRN (19:43)
[2018-08-08 05:06] LABS: Hematocrit 20.8 % (35.3-44.9); Hemoglobin 6.6 g/dL (11.5-15.4)
[2018-08-08 05:22] LABS: Calcium 8.2 mg/dL (8.6-10.3); Potassium 4.6 mEq/L (3.5-5.1)
[2018-08-08] MEDS: *HR* Heparin 5,000 UNIT/ML VIAL SQ SCH ×2 (05:23→16:46)
--- NOTE | 2018-08-08 06:43 | Orthopedics Progress Note ---
Date of Encounter: 08/08/18 Time of Encounter: 06:42 - Assessment and Plan (1) Acute blood loss anemia Current Visit: Yes Status: Acute Subjective Principal diagnosis: Status post left hip hemiarthroplasty Interval history: Patient was seen this morning doing well without complaints. Afebrile vital signs stable. Operative extremity: Neurovascularly intact Dressing clean dry and intact Calves nontender Assessment and plan: Continue with postoperative care hb 6.6 transfuse 2 units Objective Vital signs: Vital Signs Temp Pulse Resp BP Pulse Ox 08/08/18 02:42 98.4 F 68 18 121/62 93 08/07/18 22:42 98.9 F 67 18 119/69 93 08/07/18 18:35 98.7 F 76 20 107/59 94 08/07/18 16:01 98.6 F 69 15 116/65 95 08/07/18 10:49 98.9 F 75 15 109/58 94 08/07/18 07:03 98.0 F 76 15 102/50 94 Intake and Output 08/07/18 08/07/18 08/08/18 15:59 23:59 07:59 Intake Total 360 / 360 610 / 610 50 / 50 Output Total 200 / 200 0 / 0 Balance 160 / 160 610 / 610 50 / 50 Intake: Oral 360 / 360 610 / 610 50 / 50 Output: Urine 200 / 200 0 / 0 Other: Meal Breakfast Dinner Percent of Meal Consumed 100% 95% # Voids 1 1 Weight 58.7 kg Blood Glucose* 123 123 Patient Weight 08/08/18 23:59 Weight 58.7 kg - Labs CBC & BMP: 08/08/18 04:27 08/08/18 04:27 Labs: Abnormal lab results RBC 3.73 M/mcL (3.82-4.97) L 08/04/18 03:05 Hgb 6.6 g/dL (11.5-15.4) L 08/08/18 04:27 Hct 20.8 % (35.3-44.9) L 08/08/18 04:27 Sodium 135 mEq/L (136-145) L 08/08/18 04:27 Chloride 108 mEq/L (98-107) H 08/08/18 04:27 Carbon Dioxide 21 mEq/L (23-29) L 08/08/18 04:27 BUN 41 mg/dL (8-23) H 08/08/18 04:27 Creatinine 1.31 mg/dL (0.60-1.20) H 08/08/18 04:27 Est GFR ( Amer) 47 (> 60) L 08/08/18 04:27 Est GFR (Non-Af Amer) 39 (> 60) L 08/08/18 04:27 BUN/Creatinine Ratio 31 (6-26) H 08/08/18 04:27 Glucose 115 mg/dL (70-105) H 08/08/18 04:27 POC Glucose 123 mg/dL (70-99) H 08/07/18 21:27 Hemoglobin A1c 6.7 % (-5.6) H 08/03/18 19:24 Calcium 8.2 mg/dL (8.6-10.3) L 08/08/18 04:27 Consult Discharge Plan - Plan Referrals: NONE,PCP [Primary Care Provider] -
[2018-08-08] MEDS: Insulin LISPRO 300 UNITS/3 ML VIAL SQ SCH ×3 (08:33→16:18)
[2018-08-08] MEDS: Multivit/Ca/Min/Fe/FA 1 TAB TABLET PO SCH (08:44)
[2018-08-08] MEDS: Cholecalciferol (D-3) 1,000 UNIT TABLET PO SCH (08:44)
[2018-08-08] MEDS: Ascorbic Acid 500 MG TABLET PO SCH ×2 (08:44→16:46)
[2018-08-08] MEDS: traMADol 50 MG TABLET PO PRN ×2 (08:46→16:54)
[2018-08-08] MEDS ORDERED: 0.9 % Sodium Chloride 250 ML ONE ×2 (11:09→16:32)
--- NOTE | 2018-08-08 13:32 | Internal Med Progress Note ---
Hospitalist Progress Note - Encounter Date of Encounter: 08/08/18 Time of Encounter: 09:00 - Subjective Interval History: Patient is laying on bed comfortably. S/p surgery. mild left hip pain, on pain med. BP is not high, cont hold HTN medication. Hgb remains 6.6 this AM, pt agrees for transfusion, will transfuse 2 units of PRBC - Exam Vitals: Temp Pulse Resp BP Pulse Ox 98.5 F 67 14 103/60 98 08/08/18 11:48 08/08/18 11:48 08/08/18 11:48 08/08/18 11:48 08/08/18 11:48 Exam: Pt is AAO x 3, in NAD HEENT: NC/AT, PERRL Neck: Supple, no JVD, no LAD Lungs: CTA b/l Heart: S1S2, RRR Abd: Soft, nontender, BS present Ext: ROM wnl, no pedal edema. Left hip pain on palpation. Neuro: No focal deficit - Assessment and Plan (1) Hip fracture due to osteoporosis Current Visit: Yes Status: Acute Assessment and Plan: Pt has osteopenia and is s/p fall wiht left femoral neck fracture. - S/P surgery - Continue PTOT, pain management, and DVT prophylaxis (2) Hypothyroidism Current Visit: Yes Status: Acute Assessment and Plan: Resume home dose levothyroxine (3) Hypertension Current Visit: Yes Status: Acute Assessment and Plan: BP is low today, will hold home meds. Monitor BP (4) Diabetes Current Visit: Yes Status: Acute Assessment and Plan: Sliding scale insulin (5) DVT prophylaxis Current Visit: Yes Status: Acute Assessment and Plan: Subcutaneous heparin (6) CKD (chronic kidney disease) stage 2, GFR 60-89 ml/min Current Visit: Yes Status: Acute Assessment and Plan: Creatinine level is at around baseline. Closely monitor renal function. Avoid nephrotoxic medications (7) Acute blood loss anemia Current Visit: Yes Status: Acute Assessment and Plan: Hgb 6.6, with BP at low side. No signs of active bleeding so far (also per ortho exam on incision). Possibly due to surgical blood loss. Transfuse 2 units PRBC today. Pt is on iron supplement. DVT Prophylaxis: Heparin subcutaneously - Time Spent with Patient Total time spent is greater than 50% in coordination of care (as documented) at patient's floor/unit and/or counseling patient: 30 minutes 25 - 35 minutes Plan of Care Discussed with: patient Internal Medicine: Result - Labs CBC & Chem 7: 08/08/18 04:27 08/08/18 04:27 Labs: Short CBC 08/07/18 08/08/18 Range/Units 17:09 04:27 Hgb 7.0 L 6.6 L (11.5-15.4) g/dL Hct 22.0 L 20.8 L (35.3-44.9) % BMP 08/08/18 04:27 Sodium 135 L Potassium 4.6 Chloride 108 H Carbon Dioxide 21 L BUN 41 H Creatinine 1.31 H Glucose 115 H Calcium 8.2 L Consult Discharge Plan - Plan Referrals: NONE,PCP [Primary Care Provider] - (1) Hip fracture due to osteoporosis Qualifiers: Qualified Code(s): M80.059A - Age-related osteoporosis with current pathological fracture, unspecified femur, initial encounter for fracture (2) Hypothyroidism Qualifiers: Qualified Code(s): E03.9 - Hypothyroidism, unspecified (3) Hypertension Qualifiers: Qualified Code(s): I10 - Essential (primary) hypertension (4) Diabetes Qualifiers: Diabetes mellitus type: type 2 Qualified Code(s): E11.9 - Type 2 diabetes mellitus without complications
[2018-08-08] MEDS: Melatonin 3 MG TABLET PO PRN (19:55)
[2018-08-09 03:51] LABS: Hematocrit 31.7 % (35.3-44.9)
[2018-08-09 03:52] LABS: Hemoglobin 10.2 g/dL (11.5-15.4)
[2018-08-09 04:10] LABS: Calcium 8.7 mg/dL (8.6-10.3); Potassium 4.2 mEq/L (3.5-5.1)
[2018-08-09] MEDS: *HR* Heparin 5,000 UNIT/ML VIAL SQ SCH (05:11)
[2018-08-09] MEDS: traMADol 50 MG TABLET PO PRN (08:19)
[2018-08-09] MEDS: Multivit/Ca/Min/Fe/FA 1 TAB TABLET PO SCH (08:19)
[2018-08-09] MEDS: Ascorbic Acid 500 MG TABLET PO SCH (08:19)
[2018-08-09] MEDS: Cholecalciferol (D-3) 1,000 UNIT TABLET PO SCH (08:19)
[2018-08-09] MEDS: Insulin LISPRO 300 UNITS/3 ML VIAL SQ SCH ×2 (08:20→11:19)
[2018-08-09] MEDS ORDERED: Lisinopril 20 MG TABLET PO SCH (09:00)
[2018-08-09 14:26] VITALS: BP 121/74
--- NOTE | 2018-08-09 14:56 | Discharge Summary ---
- NOTES TO OUTPATIENT PROVIDER Notes to Outpatient Provider: 1. Please f/u with orthopedics as outpatient. 2. Pt has hip surgery, will recommend cont DVT prophylaxis per protocol. Date of Encounter: 08/09/18 Time of Encounter: 12:00 - Discharge Diagnosis (1) Hip fracture due to osteoporosis Priority: Primary Status: Acute Qualifiers: Qualified Code(s): M80.059A - Age-related osteoporosis with current pathological fracture, unspecified femur, initial encounter for fracture (2) Hypothyroidism Priority: Secondary Status: Acute Qualifiers: Qualified Code(s): E03.9 - Hypothyroidism, unspecified (3) Hypertension Priority: Secondary Status: Acute Qualifiers: Qualified Code(s): I10 - Essential (primary) hypertension (4) Diabetes Priority: Secondary Status: Acute Qualifiers: Diabetes mellitus type: type 2 Qualified Code(s): E11.9 - Type 2 diabetes mellitus without complications (5) DVT prophylaxis Priority: Secondary Status: Acute (6) CKD (chronic kidney disease) stage 2, GFR 60-89 ml/min Priority: Secondary Status: Acute (7) Acute blood loss anemia Priority: Primary Status: Acute Hospital course: Ms. Crane is a 83 year old female present to ER for left hip fracture due to mechanical fall. Orthopedic consult was called. Patient had surgery. After surgery, patient recover well. Patient has low hemoglobin after surgery, 2 units of PRBC has been transfused. After transfusion, hemoglobin is stable at 10.2. Still have mild to moderate left hip pain, on pain medication. PTOT recommend rehabilitation discharge. Will discharge patient to ECF today. I have seen and examined patient today. Patient is awake alert and oriented 3. Vitals are stable. Will DC patient to ECF today. Continue follow-up with PCP and orthopedic as outpatient. Discharge discussed with: patient - Time Spent with Patient Total time spent providing and/or coordinating discharge services: 40 minutes Less than 30 minutes - Discharge Medications Prescriptions: Tramadol HCl [Ultram] 50 mg PO QID PRN 2 Days #8 tab PRN Reason: Pain Home Medications: metFORMIN [Glucophage] 500 mg PO DAILY 06/26/15 [History] Aspirin [Lo-Dose Aspirin EC] 81 mg PO DAILY 02/05/17 [History] Alendronate Sodium [Fosamax] 35 mg PO QWEEK 09/17/17 [History] Calcium Carbonate/Vitamin D3 [Oyster Shell Calcium-Vit D Tab] 1 each PO DAILY 09/17/17 [History] Ferrous Sulfate [Iron] 325 mg PO DAILY 09/17/17 [History] Levothyroxine Sodium [Levoxyl] 100 mcg PO DAILY 09/17/17 [History] Simvastatin [Zocor] 20 mg PO DAILY 09/17/17 [History] Lisinopril-HCTZ 20-12.5 [Prinzide 20-12.5] 1 tab PO BID 08/05/18 [History] Heparin 5,000 unit SQ Q12HCO vial 08/09/18 [Rx] Tramadol HCl [Ultram] 50 mg PO QID PRN 2 Days #8 tab 08/09/18 [Rx] Allergies/Adverse Reactions: Allergy/AdvReac Type Severity Reaction Status Date / Time diltiazem [From Cardizem] Allergy Rash Verified 08/05/18 13:33 Date of admission: 08/03/18 18:37 Primary care physician: PCP NONE Consults: 08/03/18 18:58 Consult to Orthopedic Surgery [CONS] Routine Consulting Provider: Orthopedic and Sports Medicine Reason for Consult: left hip fracture Call Completed: Yes 08/04/18 16:08 Consult to Nurse Navigator [CONS] Routine Comment: ortho navigator Consult to Occupational Therapy [CONS] Routine Comment: Evaluate, develop and implement POC Reason for Consult: total hip replacement Does patient have active BEDREST order?: No Is patient medically & hemodynamically stable?: Yes Consult to Physical Therapy [CONS] Routine Comment: Evaluate, develop and implement POC Reason for Consult: total hip replacement Does patient have active BEDREST order?: No Is patient medically & hemodynamically stable?: Yes Consult to Rod Bending Machine Operator [CONS] Routine Reason for SW Consult: post op joint replacement RT Post Op Consult [CONS] Routine Discharging clinician: Jo Ann Mackey Anticipated date of discharge: 08/09/18 - Constitutional Vitals: Temp Pulse Resp BP Pulse Ox 98.1 F 67 15 121/74 96 08/09/18 14:24 08/09/18 14:24 08/09/18 14:24 08/09/18 14:24 08/09/18 14:24 Exam: Pt is AAO x 3, in NAD HEENT: NC/AT, PERRL Neck: Supple, no JVD, no LAD Lungs: CTA b/l Heart: S1S2, RRR Abd: Soft, nontender, BS present Ext: ROM wnl, no pedal edema. Left hip pain on palpation. Neuro: No focal deficit - Patient Status Disposition: Transfer Inpatient Rehab Fac Condition: Fair Functional capacity at discharge: uses cane/walker Overall status at discharge: patient is progressing back to baseline - Discharge Instructions Follow Up With: NONE,PCP [Primary Care Provider] - - Diet and Activity Activity: as per physical therapy Diet: diabetic diet
--- NOTE | 2018-08-09 15:20 | Physician Discharge Referral ---
ExtendedCare Referral Info Transfer To: [facility] Provider in Charge after Transfer: Other - Diagnosis (1) Hip fracture due to osteoporosis Status: Acute (2) Hypothyroidism Status: Acute (3) Hypertension Status: Acute (4) Diabetes Status: Acute (5) DVT prophylaxis Status: Acute (6) CKD (chronic kidney disease) stage 2, GFR 60-89 ml/min Status: Acute (7) Acute blood loss anemia Status: Acute - Transfer Medications Prescriptions: Tramadol HCl [Ultram] 50 mg PO QID PRN 2 Days #8 tab PRN Reason: Pain Home Medications: metFORMIN [Glucophage] 500 mg PO DAILY 06/26/15 [History] Aspirin [Lo-Dose Aspirin EC] 81 mg PO DAILY 02/05/17 [History] Alendronate Sodium [Fosamax] 35 mg PO QWEEK 09/17/17 [History] Calcium Carbonate/Vitamin D3 [Oyster Shell Calcium-Vit D Tab] 1 each PO DAILY 09/17/17 [History] Ferrous Sulfate [Iron] 325 mg PO DAILY 09/17/17 [History] Levothyroxine Sodium [Levoxyl] 100 mcg PO DAILY 09/17/17 [History] Simvastatin [Zocor] 20 mg PO DAILY 09/17/17 [History] Lisinopril-HCTZ 20-12.5 [Prinzide 20-12.5] 1 tab PO BID 08/05/18 [History] Heparin 5,000 unit SQ Q12HCO vial 08/09/18 [Rx] Tramadol HCl [Ultram] 50 mg PO QID PRN 2 Days #8 tab 08/09/18 [Rx] Allergies/Adverse Reactions: Allergy/AdvReac Type Severity Reaction Status Date / Time diltiazem [From Cardizem] Allergy Rash Verified 08/05/18 13:33 - Respiratory Orders Smoking Cessation: Smoking cessation has been advised. For more information, call the [place] Tobacco Quit Line at 3-292-[facility]-NOW. - Advance Directives Code Status: Full Code - Rehabiliation Orders Rehab Orders: Evaluation for Physical Therapy, Evaluation for Occupational Therapy - Diet Orders No Concentrated Sweets CERTIFICATION: I certify that the transfer of the above named patient to an Extended Care Facility is necessary for the continuing treatment of the diagnosis listed. The above information is true and accurate reflection of patient's current condition. Confidential - Redisclosure prohibited without a patient's written consent.
== END 2018-08-09 16:22 | DRG 470 ==
LOC: 3NENU 18:37
PROVIDERS: ADMIT Student in an Organized Health Care Education/Training Program; ATTEND Student in an Organized Health Care Education/Training Program

== ENCOUNTER 2018-08-11 19:56 | Inpatient (IN) ==
[2018-08-12] MEDS ORDERED: Naloxone 0.4 MG/ML INJ IVP PRN (03:37)
[2018-08-12] MEDS ORDERED: Acetaminophen 325 MG TABLET PO PRN (03:37)
[2018-08-12] MEDS ORDERED: D5% in Water 1,000 ML IVC PRN (03:40)
[2018-08-12] MEDS ORDERED: *HR* Dextrose 50 % in Water (Syg) 50 ML SYRINGE IVP PRN (03:40)
[2018-08-12] MEDS ORDERED: Dextrose Gel 15 GM/37.5 ML TUBE PO PRN ×2 (03:40)
[2018-08-12] MEDS: traMADol 50 MG TABLET PO PRN ×3 (04:06→20:28)
[2018-08-12] MEDS: Melatonin 3 MG TABLET PO PRN ×2 (04:07→20:28)
[2018-08-12] MEDS: 0.9 % Sodium Chloride 1,000 ML IVC SCH ×2 (04:07→11:57)
--- NOTE | 2018-08-12 04:43 | Internal Med History&Physical ---
Date of Encounter: 08/12/18 Time of Encounter: 03:30 Internal Medicine - H&P: HPI Chief complaint: Diverticulitis, recent left hip surgery Admitted From: Hospital to Hospital Transfer Plans for Post Hospital Care: Home History of present illness: Ms. Crane is a 83 year old female Patient presented from [facility] emergency room after CT results showed acute non-complicated diverticulitis. Patient has recently undergone left hip arthroplasty and was discharged on August 09. She was sent to [facility] rehabilitation, and developed diarrhea while there. She was noted to have bloody stools and mild left lower quadrant discomfort. During her previous admission she did develop anemia which was thought to be due to her recent surgical procedure, and she was transfused 2 units of blood at that time she denies previous history of GI bleeds, and has never had a colonoscopy before. At the [facility] emergency room patient's vital signs were within normal limits, CBC showed a white count of 12.3 and hemoglobin of 11.2, which trended to 10.2 after about 2 hours. Patient's CMP showed a sodium of 131, and potassium of 3.4. Patient's GFR was at her baseline at 46. Patient's blood glucose was 163. Stool occult blood test was positive. An abdominal pelvis CT was performed with IV and oral contrast that showed small to moderate hiatal hernia, mild inflammation surrounding a few diverticula in the proximal sigmoid colon is consistent with acute non-complicated diverticulitis. The left hip arthroplasty showed adjacent soft tissue edema and gas but was likely related to her recent surgery. In the ER she had been started on Levaquin and Flagyl but blood cultures were not drawn prior to antibiotics. She was transferred to [facility] for further management. Upon my evaluation, patient denies chest pain, abdominal pain, nausea, vomiting and constipation. She has had multiple episodes of diarrhea however. She states that while she has been a [facility] the been giving her senna despite not having trouble with bowel movements. She has been at [facility] for a few days but has not worked with physical therapy yet, and has not been out of bed for a few days due to pain in her hip. Past Med Surg Social Fam HX - Past Medical History Medical history: arthritis, dementia, diabetes, GERD, hyperlipidemia, hypertension, osteoporosis, thyroid disease Additional medical history: emphysema, multiple sclerosis Psychiatric history: no psych history - Past Surgical History Surgical History: other Additional surgical history: back surgery - Social History Smoking Status: Never smoker Smokeless Tobacco Status: No Alcohol use: none Drug use: none Internal Medicine - H&P: Meds metFORMIN [Glucophage] 500 mg PO DAILY 06/26/15 [History] Aspirin [Lo-Dose Aspirin EC] 81 mg PO DAILY 02/05/17 [History] Alendronate Sodium [Fosamax] 35 mg PO QWEEK 09/17/17 [History] Calcium Carbonate/Vitamin D3 [Oyster Shell Calcium-Vit D Tab] 1 each PO DAILY 09/17/17 [History] Ferrous Sulfate [Iron] 325 mg PO DAILY 09/17/17 [History] Levothyroxine Sodium [Levoxyl] 100 mcg PO DAILY 09/17/17 [History] Simvastatin [Zocor] 20 mg PO DAILY 09/17/17 [History] Lisinopril-HCTZ 20-12.5 [Prinzide 20-12.5] 1 tab PO BID 08/05/18 [History] Heparin 5,000 unit SQ Q12HCO vial 08/09/18 [Rx] Tramadol HCl [Ultram] 50 mg PO QID PRN 08/11/18 [History] Allergy/AdvReac Type Severity Reaction Status Date / Time diltiazem [From Cardizem] Allergy Rash Verified 08/05/18 13:33 All Systems PM: A 10-system review of systems was performed and is negative for pertinent findings except as documented above in the HPI. - Constitutional Vitals: Temp Pulse Resp BP Pulse Ox 97.4 F L 86 16 107/54 98 08/12/18 01:15 08/12/18 01:15 08/12/18 01:15 08/12/18 01:15 08/12/18 01:15 General appearance: Present: cooperative, A&O X 3, pleasant, no acute distress, answers questions appropriately Exam: - - Head Head exam: Present: normal inspection - Eye Eye exam: Present: EOMI, normal appearance - Respiratory Respiratory exam: Present: CTAB. Absent: decreased breath sounds, rales, respiratory distress, rhonchi, wheezes - Cardiovascular Cardiovascular exam: Present: RRR. Absent: diastolic murmur, systolic murmur - GI/Abdominal GI/Abdominal exam: Present: normal bowel sounds, soft, tenderness Additional comments: Mild tenderness left lower abdomen - Extremities Exam Extremities exam: Present: warm, radial pulses palpable and symmetrical. Absent: pedal edema, tenderness - Neurological Exam Neurological exam: Present: no focal deficits, strengths equal and symetr throughout. Absent: motor sensory deficit, facial droop, speech deficit - Skin Skin exam: Present: dry, normal color, warm - Assessment and plan (1) Diverticulitis Current Visit: No Status: Acute Assessment and plan: As seen on patient's abdominal CT. Patient also has GI bleed. Continue IV antibiotics Monitor for worsening signs of infection GI consult Follow-up results of stool panel. (2) Gastrointestinal bleeding Current Visit: No Status: Acute Assessment and plan: Positive occult blood. Likely secondary to diverticulitis. Patient also developed an anemia during her previous admission, and was transfused 2 units of blood during that time. GI consult in the morning Managing diverticulitis as above Continue to monitor Type and screen if patient's hemoglobin approaches 7.0, transfuse if indicated Serial CBCs every 6 hours Qualifiers: GI bleed type/associated pathology: unspecified gastrointestinal hemorrhage type Qualified Code(s): K92.2 - Gastrointestinal hemorrhage, unspecified (3) Diarrhea Current Visit: Yes Status: Acute Assessment and plan: Patient has had multiple episodes of diarrhea since arrival. Patient apparently was being given senna at the rehabilitation facility. We will still check for possible further infection with a GI stool panel. Follow-up results of GI stool panel Hold laxatives Qualifiers: Diarrhea type: unspecified type Qualified Code(s): R19.7 - Diarrhea, unspecified (4) Hyponatremia Current Visit: Yes Status: Acute Assessment and plan: Likely secondary to dehydration and diarrhea. Continue IV fluid hydration Repeat labs (5) CKD (chronic kidney disease) stage 2, GFR 60-89 ml/min Current Visit: No Status: Acute Assessment and plan: At baseline Continue IV fluid hydration (6) Diabetes Current Visit: No Status: Acute Assessment and plan: Patient is insulin-dependent diabetic. Monitor sugars every 6 hours while nothing by mouth Insulin sliding scale as needed Hold home meds Qualifiers: Diabetes mellitus type: type 2 Qualified Code(s): E11.9 - Type 2 diabetes mellitus without complications (7) Status post hip surgery Current Visit: Yes Status: Acute Assessment and plan: Hip surgery performed August 04, discharged from hospital August 09. PT OT consultation Continue standard postop cares (8) DVT prophylaxis Current Visit: No Status: Acute Assessment and plan: SCDs - Time Spent With Patient Total time spent is greater than 50% in coordination of care (as documented) at patient's floor/unit and/or counseling patient: Greater than 35 minutes
[2018-08-12 05:20] LABS: Hematocrit 29.6 % (35.3-44.9); Hemoglobin 9.8 g/dL (11.5-15.4); Mean Corpuscular HGB Conc 33.1 g/dL (31.6-35.5); Mean Corpuscular Hemoglobin 29.4 pg (28.0-33.3); Mean Corpuscular Volume 88.9 fL (83.0-100.0); Mean Platelet Volume 10.4 fL (9.4-12.4); Platelet Count 152 K/mcL (140-400); Red Blood Count 3.33 M/mcL (3.82-4.97); Red Cell Distribution Width 14.4 % (11.5-14.5)
[2018-08-12 05:34] LABS: Potassium 3.6 mEq/L (3.5-5.1)
[2018-08-12] MEDS: Insulin LISPRO 300 UNITS/3 ML VIAL SQ SCH ×4 (06:38→21:38)
[2018-08-12] MEDS ORDERED: Insulin LISPRO 300 UNITS/3 ML VIAL SQ SCH ×2 (07:30→21:00)
[2018-08-12 08:08] LABS: Adenovirus F 40/41 PCR Not detected (Not detect); Astrovirus PCR Not detected (Not detect); C.difficile Toxin A/B Gene PCR Not detected (Not detect); Campylobacter by PCR Not detected (Not detect); Cryptosporidium by PCR Not detected (Not detect); Cyclospora cayetanensis PCR Not detected (Not detect); E. coli O157 by PCR Not detected (Not detect); Entamoeba histolytica PCR Not detected (Not detect); Enteroaggregative E.coli(EAEC) Not detected (Not detect); Enteropathogenic E.coli(EPEC) Not detected (Not detect); Enterotoxigenic E.coli (ETEC) Not detected (Not detect); Giardia lamblia PCR Not detected (Not detect); Norovirus GI/GII PCR Not detected (Not detect); Plesiomonas shigelloides PCR Not detected (Not detect); Rotavirus A PCR Not detected (Not detect); Salmonella PCR Not detected (Not detect); Sapovirus PCR Not detected (Not detect); Shig/EnteroinvasiveE coli EIEC Not detected (Not detect); Shigalike tox-prod E coli STEC Not detected (Not detect); Vibrio PCR Not detected (Not detect); Vibrio cholerae PCR Not detected (Not detect); Yersinia enterocolitica PCR Not detected (Not detect)
--- NOTE | 2018-08-12 09:19 | Gastroenterology Consult Note ---
<Cindy Mcbride - Last Filed: 08/12/18 09:16> Date of Encounter: 08/12/18 Time of Encounter: 09:00 - Assessment and plan (1) Acute blood loss anemia Current Visit: No Status: Acute Assessment and plan: Pt presented with diarrhea and diverticulitis. Hgb has dropped to 9.8 from a baseline of 11.5 on 08/03/18. She had recent left hip surgery which required transfusion of 2 units prbcs. She also reports passing streaky bright red blood with BMs. Continue antibiotics for diverticulitis, would recommend waiting 2-3 months to do colonoscopy after inflammation has resolved, unless Hgb continues to drop. Monitor H/H, transfuse as needed. (2) Diverticulitis Current Visit: No Status: Acute (3) Gastrointestinal bleeding Current Visit: No Status: Acute Qualifiers: GI bleed type/associated pathology: unspecified gastrointestinal hemorrhage type Qualified Code(s): K92.2 - Gastrointestinal hemorrhage, unspecified - Time Spent With Patient Total time spent is greater than 50% in coordination of care (as documented) at patient's floor/unit and/or counseling patient: GI History of Present Illness - Data of Consult Patient: new to practice Consult date: 08/12/18 Requesting Physician: Solo Rubalcava MD - Consult Narrative Reason for consult: anemia/diverticulitis History of present illness: Ms. Crnae is a 83 year old female with a pmHX of arthritis, dementia, diabetes, GERD, hyperlipidemia, hypertension, osteoporosis, thyroid disease, emphysema, and multiple sclerosis. She had undergone left hip arthroplasty and was discharged on August 09. She was sent to [facility] rehabilitation, and developed diarrhea, bloody stools and mild left lower quadrant discomfort. During her previous admission she did develop anemia which was thought to be due to her recent surgical procedure, and she was transfused 2 units of blood at that time. At the [facility] emergency room patient's vital signs were within normal limits, CBC showed a white count of 12.3 and hemoglobin of 11.2, which trended to 10.2 after about 2 hours. Patient's CMP showed a sodium of 131, and potassium of 3.4. Patient's GFR was at her baseline at 46. Patient's blood glucose was 163. Stool occult blood test was positive. An abdominal pelvis CT was performed with IV and oral contrast that showed small to moderate hiatal h ernia, mild inflammation surrounding a few diverticula in the proximal sigmoid colon is consistent with acute non-complicated diverticulitis. The left hip arthroplasty showed adjacent soft tissue edema and gas but was likely related to her recent surgery. She was started on IV antibiotics. She denies chest pain, abdominal pain, nausea, vomiting and constipation. She has had multiple episodes of diarrhea however. She states that while she has been a [facility] the been giving her senna despite not having trouble with bowel movements. colonoscopy: denies nsaids: asa 81 mg Past Med Surg Social Fam HX - Past Medical History Medical history: arthritis, dementia, diabetes, GERD, hyperlipidemia, hypertension, osteoporosis, thyroid disease Additional medical history: emphysema, multiple sclerosis Psychiatric history: no psych history - Past Surgical History Surgical History: other Additional surgical history: back surgery - Social History Smoking Status: Never smoker Smokeless Tobacco Status: No Alcohol use: none Drug use: none Review of Systems: GI: as per UTE GENERAL: denies fever or chills EYES: denies yellow discoloration ENT: denies pain with swallowing or difficulty swallowing CARDIO: denies chest pain, palpitations RESP: Shortness of breath with exertion : denies change in color of urine NEURO: weakness HEME: Denies any bruising MS: chronic back and joint pain. DERM: denies rash or itching PSYCH: Denies history of anxiety or depression - Constitutional Vitals: Temp Pulse Resp BP Pulse Ox 97.9 F 76 14 104/58 96 08/12/18 08:22 08/12/18 08:22 08/12/18 08:22 08/12/18 08:22 08/12/18 08:22 Exam: CONSTITUTIONAL:alert, no acute distress.HEAD:normocephalic.EYES:no jaundice.NECK:no obvious swelling.HEART:regular rate and rhythm, no murmurs.LUNGS:bilateral good air entry.ABDOMEN:non distended, soft, tender LLQ, no masses pulpable, no organomegaly.RECTAL EXAM:Deferred.EXTREMITIES:no clubbing, cyanosis or edema.SKIN:pallor noted, no stigmata of chronic liver disease.NEUROLOGIC:no obvious focal defect. Results - Labs CBC & Chem 7: 08/12/18 04:25 08/12/18 04:25 Labs: Last Result Calcium 8.0 mg/dL (8.6-10.3) L 08/12/18 04:25 Entire Visit Hgb 9.8 g/dL (11.5-15.4) L 08/12/18 04:25 Hct 29.6 % (35.3-44.9) L 08/12/18 04:25 Consult Discharge Plan - Plan Referrals: NONE,PCP [Primary Care Provider] - <Windy Tay - Last Filed: 08/12/18 12:18> Date of Encounter: 08/12/18 - Time Spent With Patient Total time spent is greater than 50% in coordination of care (as documented) at patient's floor/unit and/or counseling patient: GI History of Present Illness - Data of Consult Requesting Physician: Solo Rubalcava MD - Consult Narrative History of present illness: Ms. Crane is a 83 year old female - Constitutional Vitals: Temp Pulse Resp BP Pulse Ox 97.9 F 76 14 104/58 96 08/12/18 08:22 08/12/18 08:22 08/12/18 08:22 08/12/18 08:22 08/12/18 08:22 Results - Labs CBC & Chem 7: 08/12/18 10:06 08/12/18 04:25 Labs: Last Result Calcium 8.0 mg/dL (8.6-10.3) L 08/12/18 04:25 Entire Visit Hgb 10.1 g/dL (11.5-15.4) L 08/12/18 10:06 Hct 30.4 % (35.3-44.9) L 08/12/18 10:06 - Attending Attestation I have personally performed a face to face evaluation on this patient. I have reviewed and agree with the care plan. History and Exam by me shows: Pt seen in the bedside no acute issues . on examination has mild tenderness in the left lower quadrant. Has bruising on the left hip from recent left hip surgery. Assessment: Patient with diverticulitis and uncomplicated. Recommen dation: Continue IV antibiotics for now patient will need a colonoscopy done outpatient in about 2-3 months to make sure there is no other etiology for her symptoms as she had no colonoscopy done in the last many years
[2018-08-12 10:17] LABS: Hematocrit 30.4 % (35.3-44.9); Hemoglobin 10.1 g/dL (11.5-15.4); Mean Corpuscular HGB Conc 33.2 g/dL (31.6-35.5); Mean Corpuscular Hemoglobin 29.4 pg (28.0-33.3); Mean Corpuscular Volume 88.4 fL (83.0-100.0); Mean Platelet Volume 10.5 fL (9.4-12.4); Platelet Count 134 K/mcL (140-400); Red Blood Count 3.44 M/mcL (3.82-4.97); Red Cell Distribution Width 14.6 % (11.5-14.5)
[2018-08-12] MEDS: MetroNIDAZOLE 500 MG/100 ML 500 MG/100 ML BAG IVPB SCH ×2 (11:57→17:52)
[2018-08-12 16:17] LABS: Mean Corpuscular HGB Conc 32.1 g/dL (31.6-35.5); Mean Corpuscular Volume 90.3 fL (83.0-100.0); Platelet Count 158 K/mcL (140-400); Red Cell Distribution Width 14.5 % (11.5-14.5)
--- NOTE | 2018-08-12 17:41 | Event Note ---
Date of Encounter: 08/12/18 Time of Encounter: 17:35 Seen and examined at bedside. Patient is new to me, information obtained from chart review and patient report. Patient was seen earlier today by nocturnal hospitalist. Laying comfortably in bed. Says she is tired in and hungry otherwise has no complaints. Typically denied melena, no hematochezia, no chest pain, no shortness of breath. She does complain of mild left hip discomfort and lower extremity swelling. Acute non-complicated diverticulitis: presented with loose stool, no abdominal pain. ABD CT at [facility] showed acute non-complicated diverticulitis. Still with loose stool but now resolving. C. difficile negative. Continue IV proton Flagyl. Anemia: Developed postop anemia after left hip arthroplasty. Received 2 units PRBC at that time. Hgb 9.1 (baseline 11.5). Evaluated by GI who recommended repeating colonoscopy in 2-3 months after inflammation has resolved lesser Hgb continues to drop. Monitor H&H, transfuse as needed. Reconsult GI if needed Left hip arthroplasty: on 08/08/[address] Stpehenson. With bilateral lower extremity edema left greater than right. Bilateral lower extremity venous Dopplers pending DVT prophylaxis: SCD
[2018-08-12] MEDS ORDERED: Levofloxacin 750 MG/150 ML 750 MG/150 ML BAG IVPB SCH (18:00)
[2018-08-12] MEDS ORDERED: Pantoprazole 40 MG VIAL IVP SCH (23:00)
[2018-08-12] MEDS: Pantoprazole 40 MG VIAL IVP SCH (23:18)
[2018-08-13] MEDS: MetroNIDAZOLE 500 MG/100 ML 500 MG/100 ML BAG IVPB SCH ×3 (00:07→16:28)
[2018-08-13 00:19] LABS: Hematocrit 26.8 % (35.3-44.9); Hemoglobin 8.8 g/dL (11.5-15.4); Mean Corpuscular HGB Conc 32.8 g/dL (31.6-35.5); Mean Corpuscular Hemoglobin 29.3 pg (28.0-33.3); Mean Corpuscular Volume 89.3 fL (83.0-100.0); Mean Platelet Volume 9.8 fL (9.4-12.4); Platelet Count 168 K/mcL (140-400); Red Cell Distribution Width 14.5 % (11.5-14.5)
[2018-08-13 00:23] LABS: INR 1.1; Prothrombin Time 12.5 Seconds (9.4-12.1)
[2018-08-13] MEDS ORDERED: *HR* Heparin 5,000 UNIT/ML VIAL IVP PRN ×2 (02:17)
--- NOTE | 2018-08-13 02:17 | Event Note ---
Date of Encounter: 08/12/18 Time of Encounter: 22:51 Notified by nurse of following venous duplex results "Bilateral lower extremity venous duplex appears to be negative for DVT and SVT in the right lower extremity. Left lower extremity appears to be positive for acute DVT in the Distal iliac, common femoral, superficial femoral, popliteal, posterior tibial, and peroneal veins. Left LSV appears to be positive for acute SVT." Stat labs ordered. Patient has had no bloody bowel movements or other signs of bleeding since arrival to [facility]. Due to risks will recommend starting heparin drip and monitor closely for bleeding and q6 hour H/H, desk monitor, 2 large bore IV's, and type and screen should transfusion be needed. Discussed risks of treatment vs no treatment with patient. Patient elects to treat with heparin drip. Patient and plan discussed with Dr Arevalo.
[2018-08-13] MEDS: Heparin 25,000 UNIT/500 ML D5W 25,000 UNIT/500 ML BAG IVC SCH (04:57)
[2018-08-13 05:38] LABS: Basophils % 0.2 %; Eosinophils # 0.2 K/mcL (0.0-0.6); Eosinophils % 1.5 %; Hematocrit 28.3 % (35.3-44.9); Immature Granulocytes % 0.8 % (0-4); Lymphocytes # 1.2 K/mcL (0.6-4.6); Lymphocytes % 11.6 %; Mean Corpuscular HGB Conc 31.8 g/dL (31.6-35.5); Mean Corpuscular Hemoglobin 28.9 pg (28.0-33.3); Monocytes # 0.6 K/mcL (0.0-1.3); Neutrophils # 8.2 K/mcL (1.6-8.9); Platelet Count 184 K/mcL (140-400); Red Blood Count 3.11 M/mcL (3.82-4.97); Red Cell Distribution Width 14.6 % (11.5-14.5); Segmented Neutrophils % 79.9 %
[2018-08-13] MEDS: *HR* OxyCODONE Immed Rel 5 MG TABLET PO PRN ×3 (05:40→20:48)
[2018-08-13 06:04] LABS: Calcium 7.7 mg/dL (8.6-10.3); Potassium 3.5 mEq/L (3.5-5.1)
[2018-08-13] MEDS: Insulin LISPRO 300 UNITS/3 ML VIAL SQ SCH ×4 (08:46→21:26)
[2018-08-13] MEDS: Pantoprazole 40 MG VIAL IVP SCH ×2 (08:47→16:28)
[2018-08-13] MEDS: Cyanocobalamin (B-12) 1,000 MCG TABLET PO SCH (08:47)
[2018-08-13 11:42] LABS: Basophils % 0.2 %; Eosinophils # 0.1 K/mcL (0.0-0.6); Eosinophils % 0.8 %; Hematocrit 28.5 % (35.3-44.9); Hemoglobin 9.4 g/dL (11.5-15.4); Immature Granulocytes % 0.6 % (0-4); Lymphocytes # 0.9 K/mcL (0.6-4.6); Lymphocytes % 9.8 %; Mean Corpuscular Hemoglobin 29.7 pg (28.0-33.3); Mean Corpuscular Volume 89.9 fL (83.0-100.0); Mean Platelet Volume 9.7 fL (9.4-12.4); Monocytes # 0.5 K/mcL (0.0-1.3); Monocytes % 5.4 %; Neutrophils # 7.9 K/mcL (1.6-8.9); Platelet Count 177 K/mcL (140-400); Red Blood Count 3.17 M/mcL (3.82-4.97); Red Cell Distribution Width 14.4 % (11.5-14.5); Segmented Neutrophils % 83.2 %
--- NOTE | 2018-08-13 12:10 | Internal Med Progress Note ---
Hospitalist Progress Note - Encounter Date of Encounter: 08/13/18 Time of Encounter: 12:34 - Subjective Interval History: left hip pain sore abdomen, pain has improved since before still watery bowel movements, BMx3 since this morning No blood in stools no chest pain, headache, dizziness, cough, sputum, n, v, - Exam Vitals: Temp Pulse Resp BP Pulse Ox 98.1 F 67 15 122/62 94 08/13/18 11:32 08/13/18 11:32 08/13/18 11:32 08/13/18 11:32 08/13/18 11:32 Exam: no distress sititng in chair no icterus no meningismus moist oral mucosa S1, S2, 2/6 early systolic murmur LUSB, prominent precordial impulse CTABL, no wheezes or rales LLE warm to touch, and somewhat swollen, no RLE edema alert, awake, oriented x 3, no dysarthria or gross motor deficits - Assessment and Plan (1) Diverticulitis Current Visit: Yes Status: Acute (2) Diabetes Current Visit: No Status: Acute (3) DVT prophylaxis Current Visit: No Status: Acute (4) CKD (chronic kidney disease) stage 2, GFR 60-89 ml/min Current Visit: Yes Status: Acute (5) Acute blood loss anemia Current Visit: No Status: Acute (6) Gastrointestinal bleeding Current Visit: No Status: Acute - Summary of Assessment and Plan Summary of Assessment and Plan: Per H&P: Ms. Crane is a 83 year old female. Patient presented from [facility] emergency room after CT results showed acute non-complicated diverticulitis. Patient has recently undergone left hip arthroplasty and was discharged on August 09. She was sent to [facility], and developed diarrhea while there. She was noted to have bloody stools and mild left lower quadrant discomfort. During her previous admission she did develop anemia which was thought to be due to her recent surgical procedure, and she was transfused 2 units of blood at that time she denies previous history of GI bleeds, and has never had a colonoscopy before. At the [facility] emergency room patient's vital signs were within normal limits, CBC showed a white count of 12.3 and hemoglobin of 11.2, which trended to 10.2 after about 2 hours. Patient's CMP showed a sodium of 131, and potassium of 3.4. Patient's GFR was at her baseline at 46. Patient's blood glucose was 163. Stool occult blood test was positive. An abdominal pelvis CT was performed with IV and oral contrast that showed small to moderate hiatal hernia, mild inflammation surrounding a few diverticula in the proximal sigmoid colon is consistent with acute non-complicated diverticulitis. The left hip arthroplasty showed adjacent soft tissue edema and gas but was likely related to her recent surgery. In the ER she had been started on Levaquin and Flagyl but blood cultures were not drawn prior to antibiotics. She was transferred to [facility] for further management. Upon my evaluation, patient denies chest pain, abdominal pain, nausea, vomiting and constipation. She has had multiple episodes of diarrhea however. She states that while she has been a [facility] the been giving her senna despite not having trouble with bowel movements. She has been at [facility] for a few days but has not worked with physical therapy yet, and has not been out of bed for a few days due to pain in her hip."" (1) Diverticulitis As seen on patient's abdominal CT. Patient also has GI bleed. Continue IV cirofloxacin/metornidazole Monitor for worsening signs of infection Stool studies negative GI consult appreciated: Continue antibiotics for diverticulitis, would recomme nd waiting 2-3 months to do colonoscopy after inflammation has resolved, unless Hgb continues to drop. Monitor H/H, transfuse as needed. (2) Gastrointestinal bleeding Hgb 11.5 on 08/03/18 --> 9.8. Positive occult blood. Likely secondary to diverticulitis. Patient also de veloped an anemia during her previous admission, and was transfused 2 units of blood after hip surgery Type and screen if patient's hemoglobin approaches 7.0, transfuse if indicated Serial CBCs every 6 hours as on heparin gtt for acute DVT (4) Hyponatremia, imprvoed Likely secondary to dehydration and diarrhea. Monitor (5) CKD (chronic kidney disease) stage 2, GFR 60-89 ml/min At baseline (6) Diabetes Patient is insulin-dependent diabetic. Monitor sugars every 6 hours while nothing by mouth Insulin sliding scale as needed Hold home meds (7) Status post hip surgery Hip surgery performed August 04, discharged from hospital August 09. PT OT consultation Continue standard postop cares (8) Acute LLE DVT Cont heparin gtt while closely monitoring for change in vitals or bleeding - Time Spent with Patient Total time spent is greater than 50% in coordination of care (as documented) at patient's floor/unit and/or counseling patient: Internal Medicine: Result - Labs CBC & Chem 7: 08/13/18 11:29 08/13/18 04:56 Labs: Short CBC 08/12/18 08/13/18 08/13/18 Range/Units 16:02 00:03 04:56 WBC 10.7 10.6 10.3 (4.3-11.1) K/mcL Hgb 9.0 L 8.8 L 9.0 L (11.5-15.4) g/dL Hct 28.0 L 26.8 L 28.3 L (35.3-44.9) % Plt Count 158 168 184 (140-400) K/mcL Neutrophils # 8.2 (1.6-8.9) K/mcL 08/13/18 Range/Units 11:29 WBC 9.5 (4.3-11.1) K/mcL Hgb 9.4 L (11.5-15.4) g/dL Hct 28.5 L (35.3-44.9) % Plt Count 177 (140-400) K/mcL Neutrophils # 7.9 (1.6-8.9) K/mcL BMP 08/13/18 04:56 Sodium 134 L Potassium 3.5 Chloride 108 H Carbon Dioxide 21 L BUN 28 H Creatinine 1.24 H Glucose 86 Calcium 7.7 L - ABG Interpretation ABG results: PT/INR, D-dimer PT 12.5 Seconds (9.4-12.1) H 08/13/18 00:03 - Impressions Impressions Hip X-Ray 08/12/18 13:54 IMPRESSION: Status post left hip replacement. D/ / Paola Slaughter Cha, MD / Paola Slaughter Cha, MD Interpreting Provider: Paola Slaughter Cha, MD Consult Discharge Plan - Plan Referrals: NONE,PCP [Primary Care Provider] - (2) Diabetes Qualifiers: Diabetes mellitus type: type 2 Diabetes mellitus complication status: with kidney complications Diabetes mellitus complication detail: with chronic kidney disease Chronic kidney disease stage: unspecified stage (6) Gastrointestinal bleeding Qualifiers: GI bleed type/associated pathology: unspecified gastrointestinal hemorrhage type Qualified Code(s): K92.2 - Gastrointestinal hemorrhage, unspecified
[2018-08-13 17:56] LABS: Basophils % 0.2 %; Eosinophils # 0.1 K/mcL (0.0-0.6); Eosinophils % 0.8 %; Hematocrit 30.6 % (35.3-44.9); Hemoglobin 9.7 g/dL (11.5-15.4); Immature Granulocytes % 0.6 % (0-4); Lymphocytes # 1.1 K/mcL (0.6-4.6); Mean Corpuscular HGB Conc 31.7 g/dL (31.6-35.5); Mean Corpuscular Hemoglobin 29.1 pg (28.0-33.3); Mean Corpuscular Volume 91.9 fL (83.0-100.0); Mean Platelet Volume 9.8 fL (9.4-12.4); Monocytes # 0.5 K/mcL (0.0-1.3); Monocytes % 4.4 %; Neutrophils # 8.9 K/mcL (1.6-8.9); Platelet Count 148 K/mcL (140-400); Red Blood Count 3.33 M/mcL (3.82-4.97); Red Cell Distribution Width 14.5 % (11.5-14.5)
[2018-08-13] MEDS: Melatonin 3 MG TABLET PO PRN (20:43)
[2018-08-14 00:36] LABS: Basophils % 0.2 %; Eosinophils # 0.2 K/mcL (0.0-0.6); Eosinophils % 1.5 %; Hematocrit 29.3 % (35.3-44.9); Hemoglobin 9.5 g/dL (11.5-15.4); Immature Granulocytes % 0.8 % (0-4); Lymphocytes # 1.1 K/mcL (0.6-4.6); Lymphocytes % 11.4 %; Mean Corpuscular HGB Conc 32.4 g/dL (31.6-35.5); Mean Corpuscular Hemoglobin 29.3 pg (28.0-33.3); Mean Corpuscular Volume 90.4 fL (83.0-100.0); Monocytes # 0.6 K/mcL (0.0-1.3); Monocytes % 5.9 %; Neutrophils # 7.9 K/mcL (1.6-8.9); Platelet Count 139 K/mcL (140-400); Red Blood Count 3.24 M/mcL (3.82-4.97); Red Cell Distribution Width 14.6 % (11.5-14.5); Segmented Neutrophils % 80.2 %
[2018-08-14 00:55] LABS: Calcium 7.6 mg/dL (8.6-10.3); Potassium 3.6 mEq/L (3.5-5.1)
[2018-08-14] MEDS: MetroNIDAZOLE 500 MG/100 ML 500 MG/100 ML BAG IVPB SCH ×4 (00:55→23:32)
[2018-08-14 07:08] LABS: Basophils % 0.1 %; Eosinophils # 0.2 K/mcL (0.0-0.6); Eosinophils % 2.1 %; Hematocrit 24.9 % (35.3-44.9); Hemoglobin 7.4 g/dL (11.5-15.4); Immature Granulocytes % 0.6 % (0-4); Lymphocytes # 0.8 K/mcL (0.6-4.6); Lymphocytes % 11.8 %; Mean Corpuscular HGB Conc 29.7 g/dL (31.6-35.5); Mean Corpuscular Hemoglobin 29.2 pg (28.0-33.3); Mean Corpuscular Volume 98.4 fL (83.0-100.0); Monocytes # 0.4 K/mcL (0.0-1.3); Monocytes % 5.5 %; Neutrophils # 5.7 K/mcL (1.6-8.9); Platelet Count 106 K/mcL (140-400); Red Blood Count 2.53 M/mcL (3.82-4.97); Red Cell Distribution Width 15.3 % (11.5-14.5); Segmented Neutrophils % 79.9 %
--- NOTE | 2018-08-14 07:39 | Internal Med Progress Note ---
Hospitalist Progress Note - Encounter Date of Encounter: 08/14/18 Time of Encounter: 08:06 - Subjective Interval History: left hip pain has improved since yesterday BMx3 since this yesterday No blood in stools, no flank pain, no hemetemesis or melena no chest pain, headache, dizziness, cough, sputum, n, v, getting tired of staying in the hospital - Exam Vitals: Temp Pulse Resp BP Pulse Ox 98.5 F 72 18 119/63 94 08/14/18 07:20 08/14/18 07:20 08/14/18 07:20 08/14/18 07:20 08/14/18 07:20 Exam: no acute cardioresp distress lying in bed no icterus, no conjunctival injection no meningismus moist oral mucosa S1, S2, 2/6 early systolic murmur LUSB, prominent precordial impulse CTABL, no wheezes or rales Soft, Nt, ND, no guarding or rebound LLE warm to touch, and swollen, no RLE edema alert, awake, oriented x 3, no dysarthria or gross motor deficits - Assessment and Plan (1) Diverticulitis Current Visit: Yes Status: Acute (2) Diabetes Current Visit: No Status: Acute (3) DVT prophylaxis Current Visit: No Status: Acute (4) CKD (chronic kidney disease) stage 2, GFR 60-89 ml/min Current Visit: Yes Status: Acute (5) Acute blood loss anemia Current Visit: No Status: Acute (6) Gastrointestinal bleeding Current Visit: No Status: Acute - Summary of Assessment and Plan Summary of Assessment and Plan: Per H&P: ""Ms. Crane is a 83 year old female. Patient presented from [place] emergency room after CT results showed acute non-complicated diverticulitis. Patient has recently undergone left hip arthroplasty and was discharged on August 09. She was sent to [facility], and developed diarrhea while there. She was noted to have bloody stools and mild left lower quadrant discomfort. During her previous admission she did develop anemia which was thought to be due to her recent surgical procedure, and she was transfused 2 units of blood at that time she denies previous history of GI bleeds, and has never had a colonoscopy before. At the [place] emergency room patient's vital signs were within normal limits, CBC showed a white count of 12.3 and hemoglobin of 11.2, which trended to 10.2 after about 2 hours. Patient's CMP showed a sodium of 131, and potassium of 3.4. Patient's GFR was at her baseline at 46. Patient's blood glucose was 163. Stool occult blood test was positive. An abdominal pelvis CT was performed with IV and oral contrast that showed small to moderate hiatal hernia, mild inflammation surrounding a few diverticula in the proximal sigmoid colon is consistent with acute non-complicated diverticulitis. The left hip arthroplasty showed adjacent soft tissue edema and gas but was likely related to her recent surgery. In the ER she had been started on Levaquin and Flagyl but blood cultures were not drawn prior to antibiotics. She was transferred to [facility] for further management. Upon my evaluation, patient denies chest pain, abdominal pain, nausea, vomiting and constipation. She has had multiple episodes of diarrhea however. She states that while she has been a [facility] the been giving her senna despite not having trouble with bowel movements. She has been at [facility] for a few d ays but has not worked with physical therapy yet, and has not been out of bed for a few days due to pain in her hip."" (1) Diverticulitis As seen on patient's abdominal CT. Patient also has GI bleed. Continue IV ciprofloxacin/metronidazole Monitor for worsening signs of infection Stool studies negative GI consult appreciated: Continue antibiotics for diverticulitis, would recommend waiting 2-3 months to do colonoscopy after inflammation has resolved, unless Hgb continues to drop. Monitor H/H, transfuse as needed. (2) Gastrointestinal bleeding Positive occult blood. Likely secondary to diverticulitis. Patient also developed an anemia during her previous admission, and was transfused 2 units of blood after hip surgery Type and screen if patient's hemoglobin approaches 7.0, transfuse if indicated - Hgb 11.5 on 08/03/18 --> 9.5 on 08/13 ---> 7.4 on 08/14 without any S/S of bleeding, hemodynamically stable. It is possible that this is dilutional as all cell lines have decreased on 2/10 AM labs, but considering GIB and heparinization, I cannot rule out slow bleeding at this time, so will continue serial CBCs every 6 hours for today (3) Hypertension Cont to hold lisinopril-HCTZ due to low normal blood pressure (4) Hyponatremia Likely secondary to dehydration and diarrhea. Monitor (5) CKD (chronic kidney disease) stage 2, GFR 60-89 ml/min At baseline (6) Diabetes Patient is insulin-dependent diabetic. Monitor sugars every 6 hours while nothing by mouth Insulin sliding scale as needed Hold home meds (7) Status post hip surgery Hip surgery performed August 04, discharged from hospital August 09. PT OT consultation Continue standard postop cares (8) Acute LLE DVT Cont heparin gtt while closely monitoring for change in vitals or bleeding - Time Spent with Patient Total time spent is greater than 50% in coordination of care (as documented) at patient's floor/unit and/or counseling patient: Internal Medicine: Result - Labs CBC & Chem 7: 08/14/18 06:23 08/14/18 00:18 Labs: Short CBC 08/13/18 08/13/18 08/14/18 Range/Units 11:29 17:47 00:18 WBC 9.5 10.6 9.8 (4.3-11.1) K/mcL Hgb 9.4 L 9.7 L 9.5 L (11.5-15.4) g/dL Hct 28.5 L 30.6 L 29.3 L (35.3-44.9) % Plt Count 177 148 139 L (140-400) K/mcL Neutrophils # 7.9 8.9 7.9 (1.6-8.9) K/mcL 08/14/18 Range/Units 06:23 WBC 7.1 (4.3-11.1) K/mcL Hgb 7.4 L D (11.5-15.4) g/dL Hct 24.9 L (35.3-44.9) % Plt Count 106 L (140-400) K/mcL Neutrophils # 5.7 (1.6-8.9) K/mcL BMP 08/14/18 00:18 Sodium 133 L Potassium 3.6 Chloride 104 Carbon Dioxide 21 L BUN 30 H Creatinine 1.34 H Glucose 83 Calcium 7.6 L - ABG Interpretation ABG results: PT/INR, D-dimer PT 12.5 Seconds (9.4-12.1) H 08/13/18 00:03 Consult Discharge Plan - Plan Referrals: NONE,PCP [Primary Care Provider] - (2) Diabetes Qualifiers: Diabetes mellitus type: type 2 Diabetes mellitus complication status: with kidney complications Diabetes mellitus complication detail: with chronic kidney disease Chronic kidney disease stage: unspecified stage (6) Gastrointestinal bleeding Qualifiers: GI bleed type/associated pathology: unspecified gastrointestinal hemorrhage type Qualified Code(s): K92.2 - Gastrointestinal hemorrhage, unspecified
[2018-08-14] MEDS: Insulin LISPRO 300 UNITS/3 ML VIAL SQ SCH ×4 (07:55→21:13)
[2018-08-14] MEDS: Cyanocobalamin (B-12) 1,000 MCG TABLET PO SCH (08:04)
[2018-08-14] MEDS: Pantoprazole 40 MG VIAL IVP SCH ×2 (08:04→18:53)
[2018-08-14] MEDS: traMADol 50 MG TABLET PO PRN ×2 (09:15→19:50)
[2018-08-14] MEDS ORDERED: Potassium Chloride Elixir 20 MEQ/15 ML UDC PO ONE (09:28)
[2018-08-14] MEDS: Heparin 25,000 UNIT/500 ML D5W 25,000 UNIT/500 ML BAG IVC SCH (12:05)
[2018-08-14 12:37] LABS: Basophils % 0.2 %; Eosinophils # 0.1 K/mcL (0.0-0.6); Eosinophils % 1.4 %; Hematocrit 28.2 % (35.3-44.9); Immature Granulocytes % 0.4 % (0-4); Lymphocytes # 1.1 K/mcL (0.6-4.6); Lymphocytes % 11.4 %; Mean Corpuscular HGB Conc 32.6 g/dL (31.6-35.5); Mean Corpuscular Hemoglobin 29.2 pg (28.0-33.3); Mean Platelet Volume 9.8 fL (9.4-12.4); Monocytes # 0.5 K/mcL (0.0-1.3); Monocytes % 5.3 %; Neutrophils # 7.9 K/mcL (1.6-8.9); Platelet Count 120 K/mcL (140-400); Red Blood Count 3.15 M/mcL (3.82-4.97); Red Cell Distribution Width 14.6 % (11.5-14.5); Segmented Neutrophils % 81.3 %
[2018-08-14 12:41] LABS: Mean Corpuscular Volume 89.5 fL (83.0-100.0)
[2018-08-14 12:45] LABS: Hemoglobin 9.2 g/dL (11.5-15.4)
[2018-08-14] MEDS: *HR* OxyCODONE Immed Rel 5 MG TABLET PO PRN (15:36)
[2018-08-15 04:01] LABS: Hematocrit 28.5 % (35.3-44.9); Hemoglobin 9.2 g/dL (11.5-15.4); Mean Corpuscular HGB Conc 32.3 g/dL (31.6-35.5); Mean Corpuscular Hemoglobin 29.2 pg (28.0-33.3); Mean Corpuscular Volume 90.5 fL (83.0-100.0); Mean Platelet Volume 10.2 fL (9.4-12.4); Platelet Count 104 K/mcL (140-400); Red Blood Count 3.15 M/mcL (3.82-4.97); Red Cell Distribution Width 14.8 % (11.5-14.5)
[2018-08-15 04:18] LABS: Calcium 7.7 mg/dL (8.6-10.3); Potassium 4.2 mEq/L (3.5-5.1)
[2018-08-15] MEDS: Insulin LISPRO 300 UNITS/3 ML VIAL SQ SCH ×4 (07:20→21:26)
[2018-08-15] MEDS: Pantoprazole 40 MG VIAL IVP SCH ×3 (07:31→16:14)
[2018-08-15] MEDS: Cyanocobalamin (B-12) 1,000 MCG TABLET PO SCH (07:31)
[2018-08-15] MEDS: MetroNIDAZOLE 500 MG/100 ML 500 MG/100 ML BAG IVPB SCH ×3 (07:31→23:21)
[2018-08-15] MEDS: traMADol 50 MG TABLET PO PRN ×2 (08:42→18:16)
[2018-08-15] MEDS: Heparin 25,000 UNIT/500 ML D5W 25,000 UNIT/500 ML BAG IVC SCH (16:22)
--- NOTE | 2018-08-15 19:16 | Internal Med Progress Note ---
Hospitalist Progress Note - Encounter Date of Encounter: 08/15/18 Time of Encounter: 09:00 - Subjective Interval History: Pt still has mild diarrhea with lose stool, non-bloody. Denies abd pain, nausea/vomiting. Tolerate diet well. Mild left hip pain. - Exam Vitals: Temp Pulse Resp BP Pulse Ox 98.5 F 69 15 109/57 94 08/15/18 15:16 08/15/18 15:16 08/15/18 15:16 08/15/18 15:16 08/15/18 15:16 Exam: Pt is AAO x 3, in NAD HEENT: NC/AT, PERRL Neck: Supple, no JVD, no LAD Lungs: CTA b/l Heart: S1S2, RRR Abd: Soft, nontender, BS present Ext: Left hip tenderness, mild left LE edema w/o calf tenderness Neuro: No focal deficit - Assessment and Plan (1) Acute deep vein thrombosis (DVT) Current Visit: Yes Status: Acute Assessment and Plan: Will change anticoagulation to by mouth Eliquis as pt has stable H/H. Cont closely monitor pt. (2) CKD (chronic kidney disease) stage 2, GFR 60-89 ml/min Current Visit: Yes Status: Acute Assessment and Plan: Creatinine level is at baseline. Continue closely monitor patient. Avoid nephrotoxic medications (3) Diverticulitis Current Visit: Yes Status: Acute Assessment and Plan: Continue Cipro and Flagyl IV. May switch to by mouth upon discharge. Patient tolerate diet well. (4) Status post hip surgery Current Visit: Yes Status: Acute Assessment and Plan: Continue PTOT and pain management (5) Diabetes Current Visit: No Status: Acute Assessment and Plan: Continue sliding scale insulin coverage (6) Hypertension Current Visit: No Status: Acute Assessment and Plan: BP is not high. Continue hold hypertensive medications (7) Hypothyroidism Current Visit: No Status: Acute Assessment and Plan: Continue home medications DVT Prophylaxis: On Eliquis. - Time Spent with Patient Total time spent is greater than 50% in coordination of care (as documented) at patient's floor/unit and/or counseling patient: 30 minutes 25 - 35 minutes Plan of Care Discussed with: patient Internal Medicine: Result - Labs CBC & Chem 7: 08/15/18 03:43 08/15/18 03:43 Labs: Short CBC 02/11/19 Range/Units 03:43 WBC 9.0 (4.3-11.1) K/mcL Hgb 9.2 L (11.5-15.4) g/dL Hct 28.5 L (35.3-44.9) % Plt Count 104 L (140-400) K/mcL [facility] 08/15/18 03:43 Sodium 135 L Potassium 4.2 Chloride 107 Carbon Dioxide 20 L BUN 27 H Creatinine 1.26 H Glucose 97 Calcium 7.7 L - ABG Interpretation ABG results: PT/INR, D-dimer PT 12.5 Seconds (9.4-12.1) H 08/13/18 00:03 Consult Discharge Plan - Plan Referrals: NONE,PCP [Primary Care Provider] - (1) Acute deep vein thrombosis (DVT) Qualifiers: DVT location: lower extremity Affected thrombotic vein of extremity: iliac Laterality: left Qualified Code(s): I82.422 - Acute embolism and thrombosis of left iliac vein (5) Diabetes Qualifiers: Diabetes mellitus type: type 2 Diabetes mellitus complication status: with kidney complications Diabetes mellitus complication detail: with chronic kidney disease Chronic kidney disease stage: stage 3 (moderate) Qualified Code(s): E11.22 - Type 2 diabetes mellitus with diabetic chronic kidney disease; N18.3 - Chronic kidney disease, stage 3 (moderate); Z79.4 - longterm (current) use of insulin (6) Hypertension Qualifiers: Hypertension type: essential hypertension Qualified Code(s): I10 - Essential (primary) hypertension (7) Hypothyroidism Qualifiers: Qualified Code(s): E03.9 - Hypothyroidism, unspecified
[2018-08-15] MEDS: Apixaban 5 MG TABLET PO SCH (21:26)
[2018-08-15] MEDS: *HR* OxyCODONE Immed Rel 5 MG TABLET PO PRN (21:29)
[2018-08-16 00:39] LABS: Basophils % 0.2 %; Eosinophils # 0.2 K/mcL (0.0-0.6); Eosinophils % 1.9 %; Hematocrit 28.1 % (35.3-44.9); Immature Granulocytes % 0.7 % (0-4); Immature Platelets 4.2 % (1.1-6.1); Lymphocytes # 1.4 K/mcL (0.6-4.6); Lymphocytes % 16.4 %; Mean Corpuscular Hemoglobin 29.2 pg (28.0-33.3); Mean Corpuscular Volume 91.2 fL (83.0-100.0); Mean Platelet Volume 10.2 fL (9.4-12.4); Monocytes # 0.5 K/mcL (0.0-1.3); Monocytes % 5.7 %; Neutrophils # 6.3 K/mcL (1.6-8.9); Platelet Count 99 K/mcL (140-400); Red Blood Count 3.08 M/mcL (3.82-4.97); Segmented Neutrophils % 75.1 %
[2018-08-16 00:55] LABS: Calcium 7.6 mg/dL (8.6-10.3); Potassium 4.2 mEq/L (3.5-5.1)
[2018-08-16] MEDS: Pantoprazole 40 MG VIAL IVP SCH ×3 (05:55→16:20)
[2018-08-16] MEDS: Insulin LISPRO 300 UNITS/3 ML VIAL SQ SCH ×4 (08:46→22:40)
[2018-08-16] MEDS: traMADol 50 MG TABLET PO PRN ×3 (08:56→22:44)
[2018-08-16] MEDS: Cyanocobalamin (B-12) 1,000 MCG TABLET PO SCH (08:57)
[2018-08-16] MEDS: Apixaban 5 MG TABLET PO SCH ×2 (08:57→22:41)
[2018-08-16] MEDS: MetroNIDAZOLE 500 MG/100 ML 500 MG/100 ML BAG IVPB SCH ×2 (08:59→16:21)
--- NOTE | 2018-08-16 18:28 | Internal Med Progress Note ---
Hospitalist Progress Note - Encounter Date of Encounter: 08/16/18 Time of Encounter: 09:00 - Subjective Interval History: Pt still has mild lose stool BM, non-bloody. Totally 2 BMs in last 24 hours. Denies abd pain, nausea/vomiting. Tolerate diet well. Mild left hip pain. Denies leg pain. - Exam Vitals: Temp Pulse Resp BP Pulse Ox 99.0 F 71 16 109/64 95 08/16/18 15:48 08/16/18 15:48 08/16/18 15:48 08/16/18 15:48 08/16/18 15:48 Exam: Pt is AAO x 3, in NAD HEENT: NC/AT, PERRL Neck: Supple, no JVD, no LAD Lungs: CTA b/l Heart: S1S2, RRR Abd: Soft, nontender, BS present Ext: Left hip tenderness, mild left LE edema w/o calf tenderness Neuro: No focal deficit - Assessment and Plan (1) Acute deep vein thrombosis (DVT) Current Visit: Yes Status: Acute Assessment and Plan: Provoked DVT by hip surgery. Will change anticoagulation to by mouth Eliquis as pt has stable H/H. Cont closely monitor pt. (2) CKD (chronic kidney disease) stage 2, GFR 60-89 ml/min Current Visit: Yes Status: Acute Assessment and Plan: Creatinine level is at baseline. Continue closely monitor patient. Avoid nephrotoxic medications (3) Diverticulitis Current Visit: Yes Status: Acute Assessment and Plan: Continue Cipro and Flagyl IV. May switch to by mouth upon discharge. Patient tolerate diet well. C diff test negative. (4) Status post hip surgery Current Visit: Yes Status: Acute Assessment and Plan: Continue PTOT and pain management (5) Diabetes Current Visit: No Status: Acute Assessment and Plan: Continue sliding scale insulin coverage (6) Hypertension Current Visit: No Status: Acute Assessment and Plan: BP is not high. Continue hold home hypertensive medications (7) Hypothyroidism Current Visit: No Status: Acute Assessment and Plan: Continue home medications DVT Prophylaxis: On Eliquis. - Time Spent with Patient Total time spent is greater than 50% in coordination of care (as documented) at patient's floor/unit and/or counseling patient: 30 min 25 - 35 minutes Plan of Care Discussed with: patient Internal Medicine: Result - Labs CBC & Chem 7: 08/16/18 00:25 08/16/18 00:25 Labs: Short CBC 08/16/18 Range/Units 00:25 WBC 8.4 (4.3-11.1) K/mcL Hgb 9.0 L (11.5-15.4) g/dL Hct 28.1 L (35.3-44.9) % Plt Count 99 L (140-400) K/mcL Neutrophils # 6.3 (1.6-8.9) K/mcL BMP 08/16/18 00:25 Sodium 135 L Potassium 4.2 Chloride 106 Carbon Dioxide 23 BUN 30 H Creatinine 1.23 H Glucose 101 Calcium 7.6 L - ABG Interpretation ABG results: PT/INR, D-dimer PT 12.5 Seconds (9.4-12.1) H 08/13/18 00:03 Consult Discharge Plan - Plan Referrals: NONE,PCP [Primary Care Provider] - (1) Acute deep vein thrombosis (DVT) Qualifiers: DVT location: lower extremity Affected thrombotic vein of extremity: iliac Laterality: left Qualified Code(s): I82.422 - Acute embolism and thrombosis of left iliac vein (5) Diabetes Qualifiers: Diabetes mellitus type: type 2 Diabetes mellitus complication status: with kidney complications Diabetes mellitus complication detail: with chronic kidney disease Chronic kidney disease stage: stage 3 (moderate) Qualified Code(s): E11.22 - Type 2 diabetes mellitus with diabetic chronic kidney disease; N18.3 - Chronic kidney disease, stage 3 (moderate); Z79.4 - snf (current) use of insulin (6) Hypertension Qualifiers: Hypertension type: essential hypertension Qualified Code(s): I10 - Essential (primary) hypertension (7) Hypothyroidism Qualifiers: Qualified Code(s): E03.9 - Hypothyroidism, unspecified
[2018-08-16] MEDS: Melatonin 3 MG TABLET PO PRN (22:44)
[2018-08-17] MEDS: MetroNIDAZOLE 500 MG/100 ML 500 MG/100 ML BAG IVPB SCH ×2 (00:03→08:31)
[2018-08-17 07:45] LABS: Basophils % 0.4 %; Eosinophils # 0.2 K/mcL (0.0-0.6); Eosinophils % 2.4 %; Hematocrit 28.9 % (35.3-44.9); Hemoglobin 9.2 g/dL (11.5-15.4); Immature Granulocytes % 0.7 % (0-4); Lymphocytes # 1.3 K/mcL (0.6-4.6); Mean Corpuscular HGB Conc 31.8 g/dL (31.6-35.5); Mean Corpuscular Volume 91.2 fL (83.0-100.0); Mean Platelet Volume 10.3 fL (9.4-12.4); Monocytes # 0.5 K/mcL (0.0-1.3); Monocytes % 7.7 %; Neutrophils # 4.7 K/mcL (1.6-8.9); Platelet Count 114 K/mcL (140-400); Red Blood Count 3.17 M/mcL (3.82-4.97); Red Cell Distribution Width 15.5 % (11.5-14.5); Segmented Neutrophils % 69.8 %
[2018-08-17 07:53] LABS: Potassium 4.7 mEq/L (3.5-5.1)
[2018-08-17] MEDS: Pantoprazole 40 MG VIAL IVP SCH ×2 (08:24→08:31)
[2018-08-17] MEDS: Insulin LISPRO 300 UNITS/3 ML VIAL SQ SCH (08:30)
[2018-08-17] MEDS: Cyanocobalamin (B-12) 1,000 MCG TABLET PO SCH (08:42)
[2018-08-17] MEDS: Apixaban 5 MG TABLET PO SCH (08:42)
[2018-08-17 10:40] VITALS: BP 106/61
--- NOTE | 2018-08-17 10:50 | Discharge Summary ---
- NOTES TO OUTPATIENT PROVIDER Notes to Outpatient Provider: 1. Pt has acute DVT on left leg, please cont Eliquis 10mg po bid for 7 days (last dose 08/22/18 9pm) then change to 5mg po bid from 08/23/18 9 am. DVT provoked by hip surgery. 2. Cont po cipro and flagyl for diverticulitis to finish a 14 day course (last day 08/26/18). 3. Pt's HTN medication is on hold as her BP is not high, please monitor BP and consider restart if necessary. Date of Encounter: 08/17/18 Time of Encounter: 10:00 - Discharge Diagnosis (1) Acute deep vein thrombosis (DVT) Priority: Primary Status: Acute Qualifiers: DVT location: lower extremity Affected thrombotic vein of extremity: iliac Laterality: left Qualified Code(s): I82.422 - Acute embolism and thrombosis of left iliac vein (2) CKD (chronic kidney disease) stage 2, GFR 60-89 ml/min Priority: Secondary Status: Acute (3) Diverticulitis Priority: Primary Status: Acute (4) Status post hip surgery Priority: Secondary Status: Acute (5) Diabetes Priority: Secondary Status: Acute Qualifiers: Diabetes mellitus type: type 2 Diabetes mellitus complication status: with kidney complications Diabetes mellitus complication detail: with chronic kidney disease Chronic kidney disease stage: stage 3 (moderate) Qualified Code(s): E11.22 - Type 2 diabetes mellitus with diabetic chronic kidney disease; N18.3 - Chronic kidney disease, stage 3 (moderate); Z79.4 - care home (current) use of insulin (6) Hypertension Priority: Secondary Status: Acute Qualifiers: Hypertension type: essential hypertension Qualified Code(s): I10 - Essential (primary) hypertension (7) Hypothyroidism Priority: Secondary Status: Acute Qualifiers: Qualified Code(s): E03.9 - Hypothyroidism, unspecified Hospital course: Ms. Crane is a 83 year old female present to ER for abdominal pain and diarrhea. CT abdomen shows acute diverticulitis. Patient was placed on nothing by mouth, IV fluid, IV Cipro and Flagyl. GI consult saw patient, no indication for colonoscopy at this point. Patient was suspected rectal bleeding but her hemoglobin remains stable, even with anticoagulation. Patient was found left leg swelling during hospitalization, Doppler venous has been done, patient was found acute DVT. Heparin drip was started, and switched to by mouth Eliquis after monitoring patient's hemoglobin and no signs of active bleeding identified. After treatment, patient feels better, will discharge patient back to rehabilitation center for rehabilitation for her left hip surgery. I have seen and examined the patient today. Patient is awake alert, oriented 3. complaining of mild left hip pain. Denies abdominal pain nausea or vomiting. Has no bowel movement overnight, 1 loose stool BM this morning. Vitals are stable. We will continue hold hypertensive medication as BP is 106/61 today. Continue Eliquis 10 mg by mouth twice a day for totally 7 days (last dose 08/22/18 9pm) and then switch to 5 mg twice a day. Continue by mouth Cipro and Flagyl to finish a 14 day course. Patient is stable to discharge to rehabilitation center. Discharge discussed with: patient - Time Spent with Patient Total time spent providing and/or coordinating discharge services: 40 minutes Greater than 30 minutes - Discharge Medications Prescriptions: Apixaban [Eliquis] 10 mg PO BID 6 Days #22 tablet Ciprofloxacin [Cipro] 250 mg PO BID 9 Days #18 tablet metroNIDAZOLE [Flagyl] 500 mg PO TID 9 Days #27 tablet Tramadol HCl [Ultram] 50 mg PO QID PRN 3 Days #12 tablet PRN Reason: Pain Home Medications: metFORMIN [Glucophage] 500 mg PO DAILY 06/26/15 [History] Aspirin [Lo-Dose Aspirin EC] 81 mg PO DAILY 02/05/17 [History] Alendronate Sodium [Fosamax] 35 mg PO MO 09/17/17 [History] Calcium Carbonate/Vitamin D3 [Oyster Shell Calcium-Vit D Tab] 1 tab PO DAILY 09/17/17 [History] Ferrous Sulfate [Iron] 325 mg PO DAILY 09/17/17 [History] Levothyroxine Sodium [Levoxyl] 100 mcg PO DAILY 09/17/17 [History] Atorvastatin [Lipitor] 10 mg PO HS 08/12/18 [History] Bisacodyl [Dulcolax] 10 mg RC HS PRN 08/12/18 [History] Cholecalciferol (Vitamin D3) [Vitamin D3] 50,000 unit PO QMONTH 08/12/18 [History] Cyanocobalamin (Vitamin B-12) [Vitamin B-12] 1,000 mcg PO DAILY 08/12/18 [History] Sennosides [Senna] 16.2 mg PO BID PRN 08/12/18 [History] Apixaban [Eliquis] 10 mg PO BID 6 Days #22 tablet 08/17/18 [Rx] Ciprofloxacin [Cipro] 250 mg PO BID 9 Days #18 tablet 08/17/18 [Rx] Tramadol HCl [Ultram] 50 mg PO QID PRN 3 Days #12 tablet 08/17/18 [Rx] metroNIDAZOLE [Flagyl] 500 mg PO TID 9 Days #27 tablet 08/17/18 [Rx] Allergies/Adverse Reactions: Allergy/AdvReac Type Severity Reaction Status Date / Time diltiazem [From Cardizem] Allergy Rash Verified 08/05/18 13:33 Date of admission: 08/15/18 19:12 Primary care physician: PCP NONE Consults: 08/12/18 04:21 Consult to Gastroenterology [CONS] Routine Consulting Provider: Gastroenterology Tram Reason for Consult: Positive occult blood test, acute non-complicated diverticulitis. Call Completed: No Consult to Occupational Therapy [CONS] Routine Comment: Evaluate, develop and implement POC Reason for Consult: Recent left hip hemiarthroplasty, discharged on August 09 to [facility]. Has yet to be evaluated by a occupational therapy postop. Does patient have active BEDREST order?: No Is patient medically & hemodynamically stable?: Yes Consult to Physical Therapy [CONS] Routine Comment: Evaluate, develop and implement POC Reason for Consult: Recent left hip hemiarthroplasty, discharged on August 09 to [facility]. Has yet to be evaluated by a physical therapy postop. Does patient have active BEDREST order?: No Is patient medically & hemodynamically stable?: Yes Discharging clinician: Jo Ann Mackey Anticipated date of discharge: 08/17/18 - Constitutional Vitals: Temp Pulse Resp BP Pulse Ox 98.9 F 67 15 106/61 94 08/17/18 10:40 08/17/18 10:40 08/17/18 10:40 08/17/18 10:40 08/17/18 10:40 General appearance: Present: cooperative, A&O X 3, pleasant, no acute distress, answers questions appropriately Exam: Pt is AAO x 3, in NAD HEENT: NC/AT, PERRL Neck: Supple, no JVD, no LAD Lungs: CTA b/l Heart: S1S2, RRR Abd: Soft, nontender, BS present Ext: Mild left hip tenderness, mild left LE edema w/o calf tenderness Neuro: No focal deficit - Patient Status Disposition: Transfer Inpatient Rehab Fac Condition: Fair Functional capacity at discharge: uses cane/walker Overall status at discharge: patient is progressing back to baseline - Discharge Instructions Follow Up With: NONE,PCP [Primary Care Provider] - - Diet and Activity Activity: as per physical therapy, increase activity as tolerated Diet: diabetic diet
[2018-08-17] MEDS ORDERED: metroNIDAZOLE 500 MG TABLET PO SCH (11:00)
--- NOTE | 2018-08-17 11:14 | Physician Discharge Referral ---
ExtendedCare Referral Info Transfer To: Rehabilitation - Diagnosis (1) Acute deep vein thrombosis (DVT) Status: Acute (2) CKD (chronic kidney disease) stage 2, GFR 60-89 ml/min Status: Acute (3) Diverticulitis Status: Acute (4) Status post hip surgery Status: Acute (5) Diabetes Status: Acute (6) Hypertension Status: Acute (7) Hypothyroidism Status: Acute - Transfer Medications Prescriptions: Apixaban [Eliquis] 10 mg PO BID 6 Days #22 tablet Ciprofloxacin [Cipro] 250 mg PO BID 9 Days #18 tablet metroNIDAZOLE [Flagyl] 500 mg PO TID 9 Days #27 tablet Tramadol HCl [Ultram] 50 mg PO QID PRN 3 Days #12 tablet PRN Reason: Pain Home Medications: metFORMIN [Glucophage] 500 mg PO DAILY 06/26/15 [History] Aspirin [Lo-Dose Aspirin EC] 81 mg PO DAILY 02/05/17 [History] Alendronate Sodium [Fosamax] 35 mg PO MO 09/17/17 [History] Calcium Carbonate/Vitamin D3 [Oyster Shell Calcium-Vit D Tab] 1 tab PO DAILY 09/17/17 [History] Ferrous Sulfate [Iron] 325 mg PO DAILY 09/17/17 [History] Levothyroxine Sodium [Levoxyl] 100 mcg PO DAILY 09/17/17 [History] Atorvastatin [Lipitor] 10 mg PO HS 08/12/18 [History] Bisacodyl [Dulcolax] 10 mg RC HS PRN 08/12/18 [History] Cholecalciferol (Vitamin D3) [Vitamin D3] 50,000 unit PO QMONTH 08/12/18 [History] Cyanocobalamin (Vitamin B-12) [Vitamin B-12] 1,000 mcg PO DAILY 08/12/18 [History] Sennosides [Senna] 16.2 mg PO BID PRN 08/12/18 [History] Apixaban [Eliquis] 10 mg PO BID 6 Days #22 tablet 08/17/18 [Rx] Ciprofloxacin [Cipro] 250 mg PO BID 9 Days #18 tablet 08/17/18 [Rx] Tramadol HCl [Ultram] 50 mg PO QID PRN 3 Days #12 tablet 08/17/18 [Rx] metroNIDAZOLE [Flagyl] 500 mg PO TID 9 Days #27 tablet 08/17/18 [Rx] Allergies/Adverse Reactions: Allergy/AdvReac Type Severity Reaction Status Date / Time diltiazem [From Cardizem] Allergy Rash Verified 08/05/18 13:33 - Respiratory Orders Smoking Cessation: Smoking cessation has been advised. For more information, call the [place] Tobacco Quit Line at 8-214-QLJX-NOW. - Advance Directives Code Status: DNR-Arrest/Don't Intubate - Rehabiliation Orders Rehab Orders: Evaluation for Physical Therapy, Evaluation for Occupational Therapy - Diet Orders No Concentrated Sweets CERTIFICATION: I certify that the transfer of the above named patient to an Extended Care Facility is necessary for the continuing treatment of the diagnosis listed. The above information is true and accurate reflection of patient's current condition. Confidential - Redisclosure prohibited without a patient's written consent.
[2018-08-17] MEDS: traMADol 50 MG TABLET PO PRN (11:31)
[2018-08-23] MEDS ORDERED: Apixaban 5 MG TABLET PO SCH (09:00)
== END 2018-08-17 11:51 | DRG 392 ==
LOC: 3NENU
PROVIDERS: ADMIT Family Medicine; ATTEND Family Medicine